=== PATIENT | female | born 1960 | race Caucasian/White ===

== ENCOUNTER 2020-10-25 19:46 | Emergency (ER) | payer OTHER ==
[2020-10-25 19:58] VITALS: RESP 16; TEMP 98.4
[2020-10-25] MEDS ORDERED: ONDANSETRON 4 MG/2 ML VIAL IVP STA (20:20)
[2020-10-25] MEDS ORDERED: MORPHINE SULFATE 2 MG/ML SYRINGE IVP STA (20:20)
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
[2020-10-25] MEDS ORDERED: ACET/COD 300 MG/30 MG STARTER PACK 6 TAB BTL PO STA (21:20)
[2020-10-25 21:37] VITALS: BP 126/71; PULSE 98
== END 2020-10-25 21:37 | disposition home or self-care (01) ==
LOC: EC 19:46
DX: S16.1XXA Strain of muscle, fascia and tendon at neck level, initial encounter (principal); S05.11XA Contusion of eyeball and orbital tissues, right eye, initial encounter; R00.0 Tachycardia, unspecified; Z87.891 Personal history of nicotine dependence; I25.2 Old myocardial infarction; Z85.048 Personal history of other malignant neoplasm of rectum, rectosigmoid junction, and anus; V43.52XA Car driver injured in collision with other type car in traffic accident, initial encounter; Y93.89 Activity, other specified; Y92.410 Unspecified street and highway as the place of occurrence of the external cause
CPT/HCPCS: 72125; 70486; 70450; 99284; 96374; 96375; J2405; J2270

== ENCOUNTER → 2020-10-31 | Outpatient (CLI) | payer OTHER ==
[2020-10-31 10:21] LABS: Basophils # (A) 0.1 k/uL (0-0.2); Basophils % (A) 1 %; Eosinophils # (A) 0.2 k/uL (0-0.7); Eosinophils % (A) 4 %; HCT 41.7 % (34.0-46.0); HGB 13.8 gm/dL (11.4-16.0); Lymphocytes # (A) 1.4 k/uL (1.0-4.8); Lymphocytes % (A) 23 %; MCH 30.1 pg (25.0-35.0); MCV 91.1 fL (80.0-100.0); Mean Platelet Volume 7.2; Monocytes # (A) 0.4 k/uL (0-1.0); Monocytes % (A) 6 %; Neutrophils # (A) 3.9 k/uL (1.3-7.7); Neutrophils % (A) 65 %; Platelet Count 185 k/uL (150-450); RBC 4.57 m/uL (3.80-5.40); RDW 13.3 % (11.5-15.5); WBC 6.1 k/uL (3.8-10.6)
--- NOTE | 2020-10-31 10:32 | XR ---
EXAMINATION TYPE: XR thoracic spine complete DATE OF EXAM: 10/31/2020 CLINICAL HISTORY: pain TECHNIQUE: Frontal, lateral, and swimmer's view of thoracic spine are obtained. COMPARISON: None. FINDINGS: Thoracic spine show satisfactory alignment without evidence of acute fracture or dislocatio n. Vertebral body heights are preserved. Multilevel degenerative disc disease and spondylosis mild d egree. Visualized ribs are unremarkable. IMPRESSION: No acute fracture or dislocation is seen in the thoracic spine. ICD 10 NO FRACTURE, INIT IAL EVALUATION
--- NOTE | 2020-10-31 10:34 | XR ---
EXAMINATION TYPE: XR lumbar spine 2 or 3V DATE OF EXAM: 10/31/2020 CLINICAL HISTORY: pain TECHNIQUE: Three views of the lumbar spine are submitted. COMPARISON: None. FINDINGS: There are 5 lumbar type vertebral bodies identified. The lumbar spine shows satisfactory alignment w ithout evidence of acute fracture or dislocation. There is no acute hemorrhage to the left. Mild mult ilevel degenerative disc space narrowing and spondylosis noted. Vertebral body heights are within nor mal limits. IMPRESSION: No acute fracture or dislocation is seen in the lumbar spine. ICD 10 NO FRACTURE, INITIAL EVALUATION
[2020-10-31 15:14] LABS: African American GFR (CKD) 93.5 (60.0-200.0); Albumin 4.4 g/dL (3.80-4.90); Albumin/Globulin Ratio 1.83 (1.60-3.17); Anion Gap 4.8 mmol/L (4.00-12.00); BUN/Creat Ratio 26.25 Ratio (12.00-20.00); Calcium 9.3 mg/dL (8.7-10.3); Carbon Dioxide 29.2 mmol/L (21.6-31.8); Chol/HDL Ratio 3.79; Globulin 2.4 g/dL (1.6-3.3); LDL Cholesterol,Calculated 125.2 mg/dL (0.0-131.0); Non-African American GFR(CKD) 80.7 (60.0-200.0); Potassium 4.4 mmol/L (3.5-5.5); Total Bilirubin 0.5 mg/dL (0.3-1.2); Total Protein 6.8 g/dL (6.2-8.2); VLDL Calculation 19.8 mg/dL (5.00-40.00)
== END | disposition home or self-care (01) ==
LOC: LABWHC1 09:12
PROVIDERS: ATTEND Family Medicine
DX: M54.5 Low back pain (principal); M54.6 Pain in thoracic spine; Z00.00 Encounter for general adult medical examination without abnormal findings
CPT/HCPCS: 36415; 72072; 72100; 80053; 80061; 85025

== ENCOUNTER 2020-11-08 13:21 | Emergency (ER) | payer OTHER ==
[2020-11-08 13:43] VITALS: BP 147/86; PULSE 98; RESP 16; TEMP 98.7
[2020-11-08] MEDS ORDERED: ACET/COD 300 MG/30 MG STARTER PACK 6 TAB BTL PO STA (13:50)
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
== END 2020-11-08 13:55 | disposition home or self-care (01) ==
LOC: EC 13:21
DX: K04.7 Periapical abscess without sinus (principal); S02.5XXD Fracture of tooth (traumatic), subsequent encounter for fracture with routine healing; I25.2 Old myocardial infarction; Z85.048 Personal history of other malignant neoplasm of rectum, rectosigmoid junction, and anus; Z87.891 Personal history of nicotine dependence; X58.XXXD Exposure to other specified factors, subsequent encounter
CPT/HCPCS: 99283

== ENCOUNTER → 2020-12-18 | Outpatient (CLI) | payer OTHER ==
--- NOTE | 2020-12-18 14:45 | ECHOS ---
STRESS ECHOCARDIOGRAM LUMASON: N/A Vial INDICATIONS: Myocardial infarction, history rectal cancer. MEDICATIONS: BASELINE HEART RATE: 91 BASELINE BLOOD PRESSURE: 113/52 MAXIMUM HEART RATE: 158 MAXIMUM BLOOD PRESSURE: 154/76 85% MPHR: 137 100% MPHR: 161 METS: 7.1 MAXIMUM STAGE REACHED: 2 TOTAL EXERCISE TIME: 5 minutes 45 seconds CLINICAL INFORMATION: Baseline rhythm is a sinus mechanism, rate of 91, normal axis and intervals, normal electrocardiogram. Baseline blood pressure was 113/52 mmHg. Patient exercised on Marcos protocol for 5 minutes 45 seconds reaching peak rate 158 beats per minute which is equal to 98% maximum predicted heart rate. Peak blood pressure 154/76 mmHg. Test was terminated secondary to fatigue. There were no chest pain. Electrocardiograph monitoring revealed no evidence of diagnostic ischemic ST deviation. Baseline echocardiogram revealed normal wall motion. At peak exercise, there was normal wall motion augmentation with no hypokinesis or dyskinesis. CONCLUSION: 1. Decreased exercise tolerance with normal electrocardiograph response to exercise. 2. Normal stress echocardiogram with no evidence of stress-induced ischemia. MMODL / IJN: [id number] /
== END | disposition home or self-care (01) ==
LOC: RADNMMAIN 09:06
PROVIDERS: ATTEND Family Medicine
DX: I21.9 Acute myocardial infarction, unspecified (principal); Z85.048 Personal history of other malignant neoplasm of rectum, rectosigmoid junction, and anus
CPT/HCPCS: 93351

== ENCOUNTER 2021-03-12 09:00 | Day surgery (SDC) | payer OTHER ==
[2021-03-07 16:10] VITALS: BMI 23.5
[~2021-03-12 09:00] MED LIST: LACTATED RINGERS 1,000 ML IV SCH
[2021-03-12] MEDS ORDERED: LACTATED RINGERS 1,000 ML IV ONE ×2 (09:15)
[2021-03-12] MEDS ORDERED: LIDOCAINE 1% (10MG/ML) FOR IV START INTRADERMA ONE (09:22)
[2021-03-12 09:35] VITALS: TEMP 97.8
[2021-03-12] MEDS ORDERED: PROPOFOL 10 MG/ML 20 ML VIAL IV ONE (09:36)
--- NOTE | 2021-03-12 09:40 | P.GSHP ---
History of Present Illness H&P Date: 03/12/21 Chief Complaint: Screening, history of anorectal cancer 60-year-old female here today for colonoscopy. Last colonoscopy 6 years ago. 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 No surgery was necessary at that time. Patient doing well currently. Does have some burning irritation at times in the anal region Past Medical History Past Medical History: Cancer, Hyperlipidemia, Myocardial Infarction ([place]) Additional Past Medical History / Comment(s): rectal cancer, 3 past [place] Last Myocardial Infarction Date:: LAST [place] 2016 History of Any Multi-Drug Resistant Organisms: None Reported Past Surgical History: Section Additional Past Surgical History / Comment(s): COLONOSCOPY Past Anesthesia/Blood Transfusion Reactions: Motion Sickness Past Psychological History: No Psychological Hx Reported - Past Family History Sister(s) Family Medical History: Cancer Medications and Allergies Home Medications Medication Instructions Recorded Confirmed Type Aspirin [Adult Low Dose Aspirin EC] 81 mg PO DAILY 03/07/21 03/07/21 History Atorvastatin [Lipitor] 40 mg PO HS 03/07/21 03/07/21 History Escitalopram [Lexapro] 5 mg PO HS 03/07/21 03/07/21 History Allergies Allergy/AdvReac Type Severity Reaction Status Date / Time No Known Allergies Allergy Verified 03/07/21 15:40 Surgical - Exam Vital Signs Temp Pulse Resp BP Pulse Ox 97.8 F 78 18 141/70 98 03/12/21 09:14 03/12/21 09:14 03/12/21 09:14 03/12/21 09:14 03/12/21 09:14 Physical exam: General: Well-developed, well-nourished HEENT: Normocephalic, sclerae nonicteric Abdomen: Nontender, nondistended Extremities: No edema Neuro: Alert and oriented Assessment and Plan (1) Personal hx-rectal/anal malignancy Narrative/Plan: Will proceed with colonoscopy Current Visit: Yes Status: Acute Code(s): Z85.048 - PRSNL HX OF MALIG NEOPLM OF RECTUM, RECTOSIG JUNCT, AND ANUS SNOMED Code(s): 658896006
--- NOTE | 2021-03-12 09:56 | P.PCN ---
Date of Procedure: 03/12/21 Procedure(s) Performed: PREOPERATIVE DIAGNOSIS: History of anorectal cancer POSTOPERATIVE DIAGNOSIS: Post radiation changes to the anal rectal region otherwise normal PROCEDURE: Colonoscopy ANESTHESIA: MAC SURGEON: Theodore Gonzalez M.D. SPECIMENS: None ENDOSCOPIC PROCEDURE: The patient was placed on the endoscopy table in the left decubitus position. The Olympus colonoscope was inserted into the anus and passed under direct visualization to the base of the cecum. The appendiceal orifice was visualized. From that point the scope was slowly withdrawn inspecting all surfaces carefully. There were no neoplastic inflammatory or polypoid lesions throughout the cecum, ascending, transverse, descending, and sigmoid colon. In the rectum distally there were mild inflammatory changes circumferentially consistent with prior radiation treatment. These radiation changes extended to the anal region and also to the skin around the anus and perineum. Nothing appeared suspicious for recurrence at this time. There was no bleeding. There were no ulcers or friability. No biopsies were performed. The patient had no visible diverticulosis. The patient was taken to the recovery room in stable condition per anesthesia guidelines. RECOMMENDATIONS: Resume diet. Follow-up colonoscopy 3-5 years.
[2021-03-12 10:24] VITALS: BP 114/63; PULSE 72; RESP 20
== END 2021-03-12 10:42 | disposition home or self-care (01) ==
LOC: ORWHC2ENDO 09:00
PROVIDERS: ATTEND Surgery
DX: Z12.11 Encounter for screening for malignant neoplasm of colon (principal); Z85.048 Personal history of other malignant neoplasm of rectum, rectosigmoid junction, and anus; Z92.3 Personal history of irradiation; E78.5 Hyperlipidemia, unspecified; I25.2 Old myocardial infarction; Z98.891 History of uterine scar from previous surgery; Z98.890 Other specified postprocedural states; Z80.9 Family history of malignant neoplasm, unspecified; Z79.82 Long term (current) use of aspirin; Z79.899 Other long term (current) drug therapy
CPT/HCPCS: J2704; G0105; 45378

== ENCOUNTER → 2023-03-03 | Outpatient (CLI) | payer OTHER ==
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
== END | disposition home or self-care (01) ==
LOC: RADMRIMAIN 12:57
PROVIDERS: ATTEND Nurse Practitioner Family
DX: S32.010A Wedge compression fracture of first lumbar vertebra, initial encounter for closed fracture (principal); M43.16 Spondylolisthesis, lumbar region; M51.16 Intervertebral disc disorders with radiculopathy, lumbar region; M48.061 Spinal stenosis, lumbar region without neurogenic claudication
CPT/HCPCS: 72148

== ENCOUNTER 2023-03-21 10:16 | Emergency (ER) | payer OTHER ==
[2023-03-21 10:22] VITALS: RESP 18
[2023-03-21] MEDS ORDERED: KETOROLAC 15 MG/ML 1 ML VIAL IM STA (10:35)
--- NOTE | 2023-03-21 10:38 | ED ---
General Adult HPI - General Chief complaint: Extremity Injury, Lower Stated complaint: Lt leg injury Time Seen by Provider: 03/21/23 10:23 Source: patient, RN notes reviewed Mode of arrival: wheelchair Limitations: physical limitation - History of Present Illness Initial comments: Patient is a pleasant 62-year-old female presenting to the emergency department with left lower leg injury. Injury occurred the night before last. A serra was racing harness on a horse who did wear off when it was spooked and then came down with a front of onto the left lower leg and foot region. Patient has had pain and swelling since that time. No significant improvement. Patient is ambulating 10-20 feet before she has to stop from discomfort. No history of chronic pain in this area previously. No head injury or loss of consciousness. No other area of trauma or concern - Related Data Home Medications Medication Instructions Recorded Confirmed Aspirin [Adult Low Dose Aspirin EC] 81 mg PO DAILY 03/07/21 03/07/21 Atorvastatin [Lipitor] 40 mg PO HS 03/07/21 03/07/21 Escitalopram [Lexapro] 5 mg PO HS 03/07/21 03/07/21 Allergies Allergy/AdvReac Type Severity Reaction Status Date / Time No Known Allergies Allergy Verified 03/21/23 10:22 Review of Systems ROS Statement: Those systems with pertinent positive or pertinent negative responses have been documented in the HPI. ROS Other: All systems not noted in ROS Statement are negative. Constitutional: Denies: fever Eyes: Denies: eye pain ENT: Denies: ear pain Respiratory: Denies: cough, dyspnea Cardiovascular: Denies: chest pain Endocrine: Denies: fatigue Gastrointestinal: Denies: abdominal pain Genitourinary: Denies: dysuria Musculoskeletal: Denies: back pain Neurological: Denies: headache, weakness Past Medical History Past Medical History: Cancer, Hyperlipidemia, Myocardial Infarction (MD) Additional Past Medical History / Comment(s): rectal cancer, 3 past MD Last Myocardial Infarction Date:: LAST 2016 History of Any Multi-Drug Resistant Organisms: None Reported Past Surgical History: Section Additional Past Surgical History / Comment(s): COLONOSCOPY Past Anesthesia/Blood Transfusion Reactions: Motion Sickness Past Psychological History: No Psychological Hx Reported Smoking Status: Former smoker Past Alcohol Use History: None Reported Past Drug Use History: None Reported - Past Family History Sister(s) Family Medical History: Cancer General Exam Limitations: no limitations General appearance: alert, in no apparent distress Head exam: Present: atraumatic Eye exam: Present: normal appearance Neck exam: Present: normal inspection. Absent: tenderness Respiratory exam: Present: normal lung sounds bilaterally Cardiovascular Exam: Present: regular rate, normal rhythm Expanded Peripheral pulses: 2+: Posterior Tibialis (L), Dorsalis Pedis (L) GI/Abdominal exam: Present: soft. Absent: tenderness Extremities exam: Present: other (Patient has tenderness in the lower anterior mid and lateral tib-fib region, moderate to severe. Patient also has mild tenderness left ankle and dorsal proximal/mid foot. There is mild swelling throughout. Minimal ecchymosis.). Absent: calf tenderness Neurological exam: Present: alert. Absent: motor sensory deficit Psychiatric exam: Present: normal affect, normal mood Skin exam: Present: other (Ecchymosis) Course Vital Signs 03/21/23 10:20 Temperature 97.3 F L Pulse Rate 104 H Respiratory 18 Rate Blood Pressure 109/68 O2 Sat by Pulse 97 Oximetry Medical Decision Making - Medical Decision Making Was pt. sent in by a medical professional or institution (, PA, SOUND EFFECTS MANAGER, urgent care, hospital, or residential...) When possible be specific @ -No Did you speak to anyone other than the patient for history (EMS, parent, family, police, friend...)? What history was obtained from this source @ -No Did you review nursing and triage notes (agree or disagree)? Why? @ -I reviewed and agree with nursing and triage notes Were old charts reviewed (outside hosp., previous admission, EMS record, old EKG, old radiological studies, urgent care reports/EKG's, residential records)? Report findings @ -No old charts were reviewed Differential Diagnosis (chest pain, altered mental status, abdominal pain women, abdominal pain men, vaginal bleeding, weakness, fever, dyspnea, syncope, headache, dizziness, GI bleed, back pain, seizure, CVA, palpatations, mental h ealth)? @ -not applicable EKG interpreted by me (3pts min.). @ -As above X-rays interpreted by me (1pt min.). @ -X-ray left tib-fib, left ankle, left foot did not reveal acute osseous abnormality CT interpreted by me (1pt min.). @ -None done U/S interpreted by me (1pt. min.). @ -None done What testing was considered but not performed or refused? (CT, X-rays, U/S, labs)? Why? @ -None What meds were considered but not given or refused? Why? @ -None Did you discuss the management of the patient with other professionals (professionals i.e. , PA, SOUND EFFECTS MANAGER, lab, RT, psych nurse, social work manager, woven wood shade assembler, teacher, small business banking officer, lining caser)? Give summary @ -No Was smoking cessation discussed for >3mins.? @ -No Was critical care preformed (if so, how long)? @ -No Were there social determinants of health that impacted care today? How? (Homelessness, low income, unemployed, alcoholism, drug addiction, transportation, low edu. Level, literacy, decrease access to med. care, detention, rehab)? @ -No Was there de-escalation of care discussed even if they declined (Discuss DNR or withdrawal of care, Hospice)? DNR status @ -No What co-morbidities impacted this encounter? (DM, HTN, Smoking, COPD, CAD, Cancer, CVA, ARF, Chemo, Hep., AIDS, mental health diagnosis, sleep apnea, morbid obesity)? @ -None Was patient admitted / discharged? Hospital course, mention meds given and route, prescriptions, significant lab abnormalities, going to OR and other pertinent info. @ -Patient refuses further pain medication prescription. Patient is updated on results and need for follow-up. Patient is receptive to ankle splint and this has been provided by nursing staff. Patient advised [id number] Tylenol and Motrin and ice as needed Undiagnosed new problem with uncertain prognosis? @ -No Drug Therapy requiring intensive monitoring for toxicity (Heparin, Nitro, Insulin, Cardizem)? @ -No Were any procedures done? @ -No Diagnosis/symptom? @ -Left leg contusion Acute, or Chronic, or Acute on Chronic? @ -Acute Uncomplicated (without systemic symptoms) or Complicated (systemic symptoms)? @ -default Side effects of treatment? @ -No Exacerbation, Progression, or Severe Exacerbation? @ -No Poses a threat to life or bodily function? How? (Chest pain, USA, MD, pneumonia, PE, COPD, DKA, ARF, appy, cholecystitis, CVA, Diverticulitis, Homicidal, Suicidal, threat to staff... and all critical care pts) @ -No Disposition Clinical Impression: Contusion of left lower leg Disposition: HOME SELF-CARE Condition: Stable Instructions (If sedation given, give patient instructions): Foot Contusion (ED) Additional Instructions: Use ankle splint. Ice to affected area. [id number] Tylenol and Motrin as needed. Return for increased pain, swelling, color change, worsening symptoms or other concerns. Please do follow-up to primary care physician in the next couple of days for recheck. Is patient prescribed a controlled substance at d/c from ED?: No Referrals: Ap Kirk MD [Primary Care Provider] - 1-2 days Time of Disposition: 11:44
--- NOTE | 2023-03-21 10:57 | XR ---
EXAMINATION TYPE: XR tibia fibula LT DATE OF EXAM: 03/21/2023 COMPARISON: None HISTORY: Trauma, pain TECHNIQUE: 2 view left tibia and fibula FINDINGS: No acute fracture or dislocation is evident. Joint spaces appear normal. Soft tissues are u nremarkable. Follow up exams can be performed 7-10 days from acute trauma for continued pain. IMPRESSION: 1. No acute osseous abnormality left tibia and fibula
--- NOTE | 2023-03-21 10:58 | XR ---
EXAMINATION TYPE: XR ankle complete LT DATE OF EXAM: 03/21/2023 COMPARISON: None HISTORY: Pain, trauma TECHNIQUE: 3 view left ankle FINDINGS: Ankle mortise is intact. Soft tissues appear normal. No acute fracture or dislocation is ev ident. Follow up exams can be performed 7-10 days from acute trauma for continued pain. IMPRESSION: 1. No acute osseous abnormality left ankle.
--- NOTE | 2023-03-21 10:59 | XR ---
EXAMINATION TYPE: XR foot complete LT DATE OF EXAM: 03/21/2023 COMPARISON: None HISTORY: Trauma, pain TECHNIQUE: 3 view left foot FINDINGS: No acute fracture or dislocation is evident. Soft tissues appear unremarkable. Alignment ap pears preserved. Follow up exams can be performed 7-10 days from acute trauma for continued pain. IMPRESSION: 1. No acute osseous abnormality left foot
[2023-03-21 12:15] VITALS: BP 126/78; PULSE 77; TEMP 98.3
== END 2023-03-21 12:15 | disposition home or self-care (01) ==
LOC: EC 10:16
DX: S80.12XA Contusion of left lower leg, initial encounter (principal); E78.5 Hyperlipidemia, unspecified; I25.2 Old myocardial infarction; Z79.82 Long term (current) use of aspirin; Z79.899 Other long term (current) drug therapy; Z87.891 Personal history of nicotine dependence; X58.XXXA Exposure to other specified factors, initial encounter
CPT/HCPCS: 73590; 73610; 73630; 99283; 96372; 29515; L4350; J1885

== ENCOUNTER → 2023-04-27 | Outpatient (CLI) | payer OTHER ==
--- NOTE | 2023-04-27 13:48 | MR ---
EXAMINATION TYPE: MR cspine/tspine wo con DATE OF EXAM: 04/27/2023 1:22 PM CLINICAL INDICATION:Female, 63 years old with history of R29.6 REPEATED FALLS; Neck/back pain, freque nt falls COMPARISON: MRI lumbar spine 03/03/2023, radiographs: L spine 04/01/2023. Thoracic spine 10/31/2020 TECHNIQUE: Multi planar, multi sequence imaging was performed utilizing: T1-weighted, T2-weighted, a nd turbo inversion recovery imaging of the cervical and thoracic spine. MR contrast: IV Contrast: None. FINDINGS: CERVICAL: Alignment: The cervical vertebral bodies have preserved heights. Alignment is within normal limits gi miroslava patient positioning. Bones: Bone signal is within normal limits. No abnormal bony edema on inversion recovery sequences. Cord: The spinal cord is unremarkable with regards to their signal intensity and morphology. Discs: Multilevel disc desiccation is present. C2-C3: No significant disc pathology. The spinal canal is patent. No neural foraminal stenosis. C3-C4: No significant disc pathology. The spinal canal is patent. Bilateral facet and uncovertebral joint arthropathy are present with mild bilateral neural foraminal stenosis. C4-C5: A disc osteophyte complex is present which minimally impresses upon the anterior spinal cord. Cord signal is maintained.. Bilateral facet and uncovertebral joint arthropathy are present with mi ld bilateral neural foraminal stenosis. C5-C6: No significant disc pathology. The spinal canal is patent. No neural foraminal stenosis. C6-C7: No significant disc pathology. The spinal canal is patent. No neural foraminal stenosis. C7-T1: No significant disc pathology. The spinal canal is patent. No neural foraminal stenosis. THORACIC: No abnormal inversion recovery signal within the thoracic spine. Multilevel disc desiccatio n is present. Osteophyte formation and disc space narrowing is seen throughout the spine. L1 vertebra l body anterior/superior limbic vertebrae versus compression deformity which appears chronic this is stable from prior MRI in 03/03/2023. Mild scoliosis changes of the thoracic spine No evidence of signi ficant spinal canal neural foraminal stenosis. Other: Right hepatic lobe 15 x 14 mm lesion which is indeterminate an predominantly high T2 signal... IMPRESSION: 1. Multilevel disc degeneration with associated osteoarthritic changes worse at C4-C5 with disc oste ophyte complex which minimally impresses upon the anterior right spinal cord. Cord signal is maintain ed. 2. No additional evidence of disc herniation or significant spinal canal or neural foraminal stenosi s throughout the cervical or thoracic spine.
== END | disposition home or self-care (01) ==
LOC: RADMRIMAIN 12:03
PROVIDERS: ATTEND Orthopaedic Surgery
DX: M50.321 Other cervical disc degeneration at C4-C5 level (principal); M47.812 Spondylosis without myelopathy or radiculopathy, cervical region; M51.34 Other intervertebral disc degeneration, thoracic region; R29.6 Repeated falls
CPT/HCPCS: 72141; 72146

== ENCOUNTER 2023-05-27 09:53 | Emergency (ER) | payer OTHER ==
[2023-05-27] MEDS ORDERED: SODIUM CHLORIDE 0.9% 1,000 ML IV STA (10:20)
--- NOTE | 2023-05-27 10:24 | ED ---
General Adult HPI - General Chief complaint: Extremity Injury, Lower Stated complaint: L Foot Injury, Rooster attack/srinivasan yesterday Time Seen by Provider: 05/27/23 10:10 Source: patient Mode of arrival: wheelchair Limitations: no limitations - History of Present Illness Initial comments: Old female presenting to the ED with a chief complaint of left foot injury. Patient states that her rooster packed her left foot yesterday. Since then, notes that she has been developing pain of the left foot and notes today that she has been unable to ambulate due to the pain. Denies fever. Unknown tetanus status. No other complaints. - Related Data Home Medications Medication Instructions Recorded Confirmed Aspirin [Adult Low Dose Aspirin EC] 81 mg PO DAILY 03/07/21 03/07/21 Atorvastatin [Lipitor] 40 mg PO HS 03/07/21 03/07/21 Escitalopram [Lexapro] 5 mg PO HS 03/07/21 03/07/21 Previous Rx's Medication Instructions Recorded Clindamycin [Cleocin] 450 mg PO TID 7 Days #63 capsule 05/27/23 Allergies Allergy/AdvReac Type Severity Reaction Status Date / Time No Known Allergies Allergy Verified 03/21/23 10:22 Review of Systems ROS Statement: Those systems with pertinent positive or pertinent negative responses have been documented in the HPI. ROS Other: All systems not noted in ROS Statement are negative. Past Medical History Past Medical History: Cancer, Hyperlipidemia, Myocardial Infarction (DC) Additional Past Medical History / Comment(s): rectal cancer, 3 past DC Last Myocardial Infarction Date:: LAST 2016 History of Any Multi-Drug Resistant Organisms: None Reported Past Surgical History: Section Additional Past Surgical History / Comment(s): COLONOSCOPY Past Anesthesia/Blood Transfusion Reactions: Motion Sickness Past Psychological History: No Psychological Hx Reported Smoking Status: Former smoker Past Alcohol Use History: None Reported Past Drug Use History: None Reported - Past Family History Sister(s) Family Medical History: Cancer General Exam Limitations: no limitations General appearance: alert Eye exam: Present: normal appearance Respiratory exam: Present: normal lung sounds bilaterally Cardiovascular Exam: Present: regular rate, normal rhythm GI/Abdominal exam: Present: soft Extremities exam: Present: other (Full strength and sensation at the left foot. DP/PT pulses intact. Punctate lesion on the dorsum of the foot with no active drainage with approximately half a centimeter of surrounding erythema. Foot edematous, warm. Pain out of proportion to light touch.) Neurological exam: Present: alert, oriented X3 Skin exam: Present: warm, dry Course Vital Signs 05/27/23 09:54 Temperature 99.1 F Pulse Rate 103 H Respiratory 20 Rate Blood Pressure 115/64 O2 Sat by Pulse 98 Oximetry Medical Decision Making - Medical Decision Making Was pt. sent in by a medical professional or institution (, LACHO, IMPROVEMENT LEAD, urgent care, hospital, or fdc...) When possible be specific @ -No Did you speak to anyone other than the patient for history (EMS, parent, family, police, friend...)? What history was obtained from this source @ -No Did you review nursing and triage notes (agree or disagree)? Why? @ -I reviewed and agree with nursing and triage notes Were old charts reviewed (outside hosp., previous admission, EMS record, old EKG, old radiological studies, urgent care reports/EKG's, fdc records)? Report findings @ -Old charts reviewed showing history of hyperlipidemia, no history of diabetes. Differential Diagnosis (chest pain, altered mental status, abdominal pain women, abdominal pain men, vaginal bleeding, weakness, fever, dyspnea, syncope, headache, dizziness, GI bleed, back pain, seizure, CVA, palpatations, mental health, musculoskeletal)? @ -Cellulitis, MRSA, osteomyelitis, necrotizing fasciitis. This is not meant to be an all-inclusive list. EKG interpreted by me (3pts min.). @ -None X-rays interpreted by me (1pt min.). @ -X-ray showed no acute finding. CT interpreted by me (1pt min.). @ -None done U/S interpreted by me (1pt. min.). @ -None done What testing was considered but not performed or refused? (CT, X-rays, U/S, labs)? Why? @ -None What meds were considered but not given or refused? Why? @ -None Did you discuss the management of the patient with other professionals (professionals i.e. LACHO Bruce, IMPROVEMENT LEAD, lab, RT, psych nurse, medical social worker, house cleaner, teacher, student liaison officer, outpatient case manager)? Give summary @ -No Was smoking cessation discussed for >3mins.? @ -No Was critical care preformed (if so, how long)? @ -No Were there social determinants of health that impacted care today? How? (Homelessness, low income, unemployed, alcoholism, drug addiction, transportation, low edu. Level, literacy, decrease access to med. care, intermediate, rehab)? @ -No Was there de-escalation of care discussed even if they declined (Discuss DNR or withdrawal of care, Hospice)? DNR status @ -No What co-morbidities impacted this encounter? (DM, HTN, Smoking, COPD, CAD, Cancer, CVA, ARF, Chemo, Hep., AIDS, mental health diagnosis, sleep apnea, morbid obesity)? @ -None Was patient admitted / discharged? Hospital course, mention meds given and route, prescriptions, significant lab abnormalities, going to OR and other pertinent info. @ -Discharge. Patient does have an elevated white count at 12.5 with a CRP of 4.1. At this time no evidence of necrotizing fasciitis. X-ray showed no acute findings. Erythema was marked with a surgical marker. Provided clindamycin IV here in the ED. Tetanus updated Discharged home with prescription for clindamycin. Discussed strict return precautions with patient who verbalizes a greement. Undiagnosed new problem with uncertain prognosis? @ -No Drug Therapy requiring intensive monitoring for toxicity (Heparin, Nitro, Insu moni, Cardizem)? @ -No Were any procedures done? @ -No Diagnosis/symptom? @ -Cellulitis Acute, or Chronic, or Acute on Chronic? @ -Acute Uncomplicated (without systemic symptoms) or Complicated (systemic symptoms)? @ -Complicated, tachycardia. Side effects of treatment? @ -No Exacerbation, Progression, or Severe Exacerbation? @ -No Poses a threat to life or bodily function? How? (Chest pain, USA, DC, pneumonia, PE, COPD, DKA, ARF, appy, cholecystitis, CVA, Diverticulitis, Homicidal, Suicidal, threat to staff... and all critical care pts) @ -No - Lab Data Result diagrams: 05/27/23 10:35 05/27/23 10:35 Lab Results 05/27/23 05/27/23 Range/Units 10:35 10:35 WBC 12.5 H (3.8-10.6) k/uL RBC 4.24 (3.80-5.40) m/uL Hgb 12.2 (11.4-16.0) gm/dL Hct 38.7 (34.0-46.0) % MCV 91.2 (80.0-100.0) fL MCH 28.9 (25.0-35.0) pg MCHC 31.7 (31.0-37.0) g/dL RDW 12.8 (11.5-15.5) % Plt Count 187 (150-450) k/uL MPV 7.7 Neutrophils % 81 % Lymphocytes % 10 % Monocytes % 7 % Eosinophils % 1 % Basophils % 0 % Neutrophils # 10.1 H (1.3-7.7) k/uL Lymphocytes # 1.3 (1.0-4.8) k/uL Monocytes # 0.9 (0-1.0) k/uL Eosinophils # 0.1 (0-0.7) k/uL Basophils # 0.0 (0-0.2) k/uL Sodium 138 (137-145) mmol/L Potassium 3.7 (3.5-5.1) mmol/L Chloride 107 (98-107) mmol/L Carbon Dioxide 23 (22-30) mmol/L Anion Gap 8 mmol/L BUN 13 (7-17) mg/dL Creatinine 0.59 (0.52-1.04) mg/dL Est GFR (CKD-EPI)AfAm >90 (>60 ml/min/1.73 sqM) Est GFR (CKD-EPI)NonAf >90 (>60 ml/min/1.73 sqM) Glucose 139 H (74-99) mg/dL Calcium 9.2 (8.4-10.2) mg/dL Total Bilirubin 0.9 (0.2-1.3) mg/dL AST 19 (14-36) U/L ALT 18 (4-34) U/L Alkaline Phosphatase 86 (38-126) U/L C-Reactive Protein 4.1 H (<1.0) mg/dL Total Protein 7.2 (6.3-8.2) g/dL Albumin 3.9 (3.5-5.0) g/dL Disposition Clinical Impression: Cellulitis, Animal bite of dorsum of foot Disposition: HOME SELF-CARE Condition: Good Instructions (If sedation given, give patient instructions): Cellulitis (ED) Additional Instructions: Please return to the Emergency Department if symptoms worsen or any other concerns. Monitor for spreading redness past the marked edges. Prescriptions: Clindamycin [Cleocin] 450 mg PO TID 7 Days #63 capsule Is patient prescribed a controlled substance at d/c from ED?: No Referrals: Broderick Cardenas MD [Primary Care Provider] - 1-2 days Time of Disposition: 11:20
[2023-05-27] MEDS ORDERED: DIPH,PERTUS(ACELL)TETVAC-LF 0.5 ML VIAL IM ONE (10:25)
[2023-05-27 10:43] LABS: Basophils % (A) 0 %; Eosinophils # (A) 0.1 k/uL (0-0.7); Eosinophils % (A) 1 %; HCT 38.7 % (34.0-46.0); HGB 12.2 gm/dL (11.4-16.0); Lymphocytes # (A) 1.3 k/uL (1.0-4.8); Lymphocytes % (A) 10 %; MCH 28.9 pg (25.0-35.0); MCHC 31.7 g/dL (31.0-37.0); MCV 91.2 fL (80.0-100.0); Mean Platelet Volume 7.7; Monocytes # (A) 0.9 k/uL (0-1.0); Monocytes % (A) 7 %; Neutrophils # (A) 10.1 k/uL (1.3-7.7); Neutrophils % (A) 81 %; Platelet Count 187 k/uL (150-450); RBC 4.24 m/uL (3.80-5.40); RDW 12.8 % (11.5-15.5); WBC 12.5 k/uL (3.8-10.6)
--- NOTE | 2023-05-27 10:53 | XR ---
EXAMINATION TYPE: XR foot complete LT DATE OF EXAM: 05/27/2023 COMPARISON: 03/21/2023 HISTORY: Pain and puncture wounds from [place] at TECHNIQUE: 3 view left foot FINDINGS: No acute fracture or dislocation is evident. Soft tissues appear normal. No radiopaque fore ign bodies are evident. Joint spaces are preserved. Follow up exams can be performed as clinically in dicated. IMPRESSION: 1. No acute abnormalities left foot
[2023-05-27 11:24] LABS: ALT 18 U/L (4-34); AST 19 U/L (14-36); African American GFR (CKD) >90 (>60 ml/min/1.73 sqM); Albumin 3.9 g/dL (3.5-5.0); Alkaline Phosphatase 86 U/L (38-126); Anion Gap 8 mmol/L; Blood Urea Nitrogen 13 mg/dL (7-17); C Reactive Protein 4.1 mg/dL (<1.0); Calcium 9.2 mg/dL (8.4-10.2); Carbon Dioxide 23 mmol/L (22-30); Chloride 107 mmol/L (98-107); Glucose 139 mg/dL (74-99); Non-African American GFR(CKD) >90 (>60 ml/min/1.73 sqM); Potassium 3.7 mmol/L (3.5-5.1); Sodium 138 mmol/L (137-145); Total Bilirubin 0.9 mg/dL (0.2-1.3); Total Protein 7.2 g/dL (6.3-8.2)
[2023-05-27] MEDS ORDERED: CLINDAMYCIN 600 MG in DEXTROSE 5% IN WATER 50 ML IVPB STA ×2 (11:36)
[2023-05-27] MEDS ORDERED: KETOROLAC 15 MG/ML 1 ML VIAL IVP STA (11:37)
[2023-05-27 13:09] VITALS: BP 99/54; PULSE 68; RESP 16; TEMP 98.6
== END 2023-05-27 13:08 | disposition home or self-care (01) ==
LOC: EC 09:53
DX: S91.352A Open bite, left foot, initial encounter (principal); L03.116 Cellulitis of left lower limb; E78.5 Hyperlipidemia, unspecified; I25.2 Old myocardial infarction; Z87.891 Personal history of nicotine dependence; Z79.82 Long term (current) use of aspirin; Z79.899 Other long term (current) drug therapy; Z23 Encounter for immunization; W61.33XA Pecked by chicken, initial encounter
CPT/HCPCS: 36415; 80053; 85025; 86140; 73630; 90715; 99284; 96365; 96375; 96361; 90471; J1885

== ENCOUNTER 2023-07-24 05:26 | Observation (INO) | payer OTHER ==
[2023-07-24 05:33] VITALS: TEMP 97.5
[2023-07-24] MEDS ORDERED: KETOROLAC 15 MG/ML 1 ML VIAL IVP STA (05:52)
--- NOTE | 2023-07-24 06:08 | ED ---
General Adult HPI - General Source: patient Mode of arrival: wheelchair <Abrahan Maldonado - Last Filed: 07/24/23 06:35> <Matt Yepez - Last Filed: 07/24/23 08:27> - General Chief complaint: Chest Pain Stated complaint: Chest pain Time Seen by Provider: 07/24/23 05:33 - History of Present Illness Initial comments: This is a 63-year-old female with a past medical history including hyperlipidemia presents emergency department for central chest pain. The patient stated that this pain woke her up out of sleep at 4 AM and stated that it does radiate to her back. The patient stated that she had a similar pain before when her son but stated that she does not have any cardiac stents. The patient denied any nausea or vomiting as well as any diaphoresis. The patient was otherwise resting in bed company. The patient denied any trauma to the chest but did state that the pain is worse with movement. (Abrahan Maldonado) - Related Data Home Medications Medication Instructions Recorded Confirmed Aspirin [Adult Low Dose Aspirin EC] 81 mg PO DAILY 03/07/21 03/07/21 Atorvastatin [Lipitor] 40 mg PO HS 03/07/21 03/07/21 Escitalopram [Lexapro] 5 mg PO HS 03/07/21 03/07/21 Previous Rx's Medication Instructions Recorded Clindamycin [Cleocin] 450 mg PO TID 7 Days #63 capsule 05/27/23 Allergies Allergy/AdvReac Type Severity Reaction Status Date / Time No Known Allergies Allergy Verified 07/24/23 05:32 Review of Systems ROS Other: All systems not noted in ROS Statement are negative. <Abrahan Maldonado - Last Filed: 07/24/23 06:35> ROS Other: All systems not noted in ROS Statement are negative. <Matt Yepez - Last Filed: 07/24/23 08:27> ROS Statement: Those systems with pertinent positive or pertinent negative responses have been documented in the HPI. Past Medical History Past Medical History: Cancer, Hyperlipidemia, Myocardial Infarction ([place]) Additional Past Medical History / Comment(s): rectal cancer, 3 past [place] Last Myocardial Infarction Date:: LAST [place] 2016 History of Any Multi-Drug Resistant Organisms: None Reported Past Surgical History: Section Additional Past Surgical History / Comment(s): COLONOSCOPY Past Anesthesia/Blood Transfusion Reactions: Motion Sickness Past Psychological History: No Psychological Hx Reported Smoking Status: Former smoker Past Alcohol Use History: None Reported Past Drug Use History: None Reported - Past Family History Sister(s) Family Medical History: Cancer <Abrahan Maldonado - Last Filed: 07/24/23 06:35> General Exam Limitations: no limitations General appearance: alert, in no apparent distress Head exam: Present: atraumatic, normocephalic, normal inspection Eye exam: Present: normal appearance, PERRL Pupils: Present: normal accommodation ENT exam: Present: normal exam, normal oropharynx, mucous membranes moist Neck exam: Present: normal inspection, full ROM Respiratory exam: Present: normal lung sounds bilaterally, chest wall tenderness (TTP over the lower sternum) Cardiovascular Exam: Present: regular rate, normal rhythm GI/Abdominal exam: Present: soft, normal bowel sounds Extremities exam: Present: normal inspection, full ROM Back exam: Present: normal inspection, full ROM Neurological exam: Present: alert, oriented X3, CN II-XII intact Psychiatric exam: Present: normal affect, normal mood Skin exam: Present: warm, dry <Abrahan Maldonado - Last Filed: 07/24/23 06:35> Course Vital Signs 07/24/23 05:30 Temperature 97.5 F L Pulse Rate 77 Respiratory 19 Rate Blood Pressure 112/73 O2 Sat by Pulse 98 Oximetry EKG Findings - EKG Comments: EKG Findings:: An EKG was obtained and was interpreted by myself showing a rate of 66, MA interval 185, QRS duration 82 and QTC of 438. This EKG showed a normal sinus rhythm with no ST segment elevation or depression noted. <Abrahan Maldonado - Last Filed: 07/24/23 06:35> Medical Decision Making - Lab Data Result diagrams: 07/24/23 05:42 07/24/23 05:42 <Abrahan Maldonado - Last Filed: 07/24/23 06:35> - Lab Data Result diagrams: 07/24/23 05:42 07/24/23 05:42 <Matt Yepez - Last Filed: 07/24/23 08:27> - Medical Decision Making Was pt. sent in by a medical professional or institution (, PA, CORPORATE COUNSEL, urgent care, hospital, or fpc...) When possible be specific @ -No Did you speak to anyone other than the patient for history (EMS, parent, family, police, friend...)? What history was obtained from this source @ -No Did you review nursing and triage notes (agree or disagree)? Why? @ -I reviewed and agree with nursing and triage notes Were old charts reviewed (outside hosp., previous admission, EMS record, old EKG, old radiological studies, urgent care reports/EKG's, fpc records)? Report findings @ -No old charts were reviewed Differential Diagnosis (chest pain, altered mental status, abdominal pain women, abdominal pain men, vaginal bleeding, weakness, fever, dyspnea, syncope, headache, dizziness, GI bleed, back pain, seizure, CVA, palpatations, mental health)? @ -ACS, chest wall muscle strain, pneumonia EKG interpreted by me (3pts min.). @ -As above X-rays interpreted by me (1pt min.). @ -Chest x-ray was ordered however was to pending at this time. CT interpreted by me (1pt min.). @ -None done U/S interpreted by me (1pt. min.). @ -None done What testing was considered but not performed or refused? (CT, X-rays, U/S, labs)? Why? @ -None What meds were considered but not given or refused? Why? @ -None Did you discuss the management of the patient with other professionals (pr ofessionals i.e. , PA, CORPORATE COUNSEL, lab, RT, psych nurse, social research assistant, office clerk, teacher, stream control officer, behavioral health case manager)? Give summary @ -No Was smoking cessation discussed for >3mins.? @ -No Was critical care preformed (if so, how long)? @ -No Were there social determinants of health that impacted care today? How? (Homelessness, low income, unemployed, alcoholism, drug addiction, transport ation, low edu. Level, literacy, decrease access to med. care, long term, rehab)? @ -No Was there de-escalation of care discussed even if they declined (Discuss DNR or withdrawal of care, Hospice)? DNR status @ -No What co-morbidities impacted this encounter? (DM, HTN, Smoking, COPD, CAD, Cancer, CVA, ARF, Chemo, Hep., AIDS, mental health diagnosis, sleep apnea, morbid obesity)? @ -Hyperlipidemia, rectal cancer in remission Was patient admitted / discharged? Hospital course, mention meds given and route, prescriptions, significant lab abnormalities, going to OR and other pertinent info. @ -The patient was seen and evaluated emergency department. Physical exam, the patient was resting in bed without any acute distress. Vital signs admission were stable. Due to the nature the patient's complaints, laboratory workup and chest x-ray was obtained. Workup was to pending at this time and will be sent out to the oncoming physician, Dr. Yepez. The patient was signed out in stable condition. (Abrahan Maldonado) Chest x-ray interpreted by myself shows questionable infiltrate right lower lobe. Patient reevaluated and resting comfortably in bed. Patient states discomfort does feel similar to her previous heart attack. Patient is updated on results and plan. Case was discussed with Dr. Smith, who will admit covering Dr. Varela. Admission orders written. Blood cultures and lactic acid have been ordered. IV antibiotics ordered. D-luis f izabela added. Patient will be admitted. Admission orders written. (Matt Yepez) - Lab Data Lab Results 07/24/23 07/24/23 07/24/23 Range/Units 05:42 05:42 05:42 WBC 7.3 (3.8-10.6) k/uL RBC 4.19 (3.80-5.40) m/uL Hgb 12.6 (11.4-16.0) gm/dL Hct 38.1 (34.0-46.0) % MCV 90.9 (80.0-100.0) fL MCH 30.1 (25.0-35.0) pg MCHC 33.1 (31.0-37.0) g/dL RDW 13.5 (11.5-15.5) % Plt Count 191 (150-450) k/uL MPV 7.7 Neutrophils % 69 % Lymphocytes % 20 % Monocytes % 5 % Eosinophils % 4 % Basophils % 0 % Neutrophils # 5.1 (1.3-7.7) k/uL Lymphocytes # 1.5 (1.0-4.8) k/uL Monocytes # 0.4 (0-1.0) k/uL Eosinophils # 0.3 (0-0.7) k/uL Basophils # 0.0 (0-0.2) k/uL PT 9.7 (9.0-12.0) sec INR 0.9 (<1.2) APTT 23.9 (22.0-30.0) sec Sodium 139 (137-145) mmol/L Potassium 3.8 (3.5-5.1) mmol/L Chloride 109 H (98-107) mmol/L Carbon Dioxide 22 (22-30) mmol/L Anion Gap 8 mmol/L BUN 21 H (7-17) mg/dL Creatinine 0.68 (0.52-1.04) mg/dL Est GFR (CKD-EPI)AfAm >90 (>60 ml/min/1.73 sqM) Est GFR (CKD-EPI)NonAf >90 (>60 ml/min/1.73 sqM) Glucose 95 (74-99) mg/dL Calcium 9.6 (8.4-10.2) mg/dL Magnesium 1.9 (1.6-2.3) mg/dL Total Bilirubin 0.4 (0.2-1.3) mg/dL AST 37 H (14-36) U/L ALT 33 (4-34) U/L Alkaline Phosphatase 94 (38-126) U/L Troponin I (0.000-0.034) ng/mL NT-Pro-B Natriuret Pep 25 pg/mL Total Protein 6.8 (6.3-8.2) g/dL Albumin 3.8 (3.5-5.0) g/dL 07/24/23 Range/Units 05:42 WBC (3.8-10.6) k/uL RBC (3.80-5.40) m/uL Hgb (11.4-16.0) gm/dL Hct (34.0-46.0) % MCV (80.0-100.0) fL MCH (25.0-35.0) pg MCHC (31.0-37.0) g/dL RDW (11.5-15.5) % Plt Count (150-450) k/uL MPV Neutrophils % % Lymphocytes % % Monocytes % % Eosinophils % % Basophils % % Neutrophils # (1.3-7.7) k/uL Lymphocytes # (1.0-4.8) k/uL Monocytes # (0-1.0) k/uL Eosinophils # (0-0.7) k/uL Basophils # (0-0.2) k/uL PT (9.0-12.0) sec INR (<1.2) APTT (22.0-30.0) sec Sodium (137-145) mmol/L Potassium (3.5-5.1) mmol/L Chloride (98-107) mmol/L Carbon Dioxide (22-30) mmol/L Anion Gap mmol/L BUN (7-17) mg/dL Creatinine (0.52-1.04) mg/dL Est GFR (CKD-EPI)AfAm (>60 ml/min/1.73 sqM) Est GFR (CKD-EPI)NonAf (>60 ml/min/1.73 sqM) Glucose (74-99) mg/dL Calcium (8.4-10.2) mg/dL Magnesium (1.6-2.3) mg/dL Total Bilirubin (0.2-1.3) mg/dL AST (14-36) U/L ALT (4-34) U/L Alkaline Phosphatase (38-126) U/L Troponin I <0.012 (0.000-0.034) ng/mL NT-Pro-B Natriuret Pep pg/mL Total Protein (6.3-8.2) g/dL Albumin (3.5-5.0) g/dL Disposition <Abrahan Maldonado - Last Filed: 07/24/23 06:35> Is patient prescribed a controlled substance at d/c from ED?: No Time of Disposition: 08:23 <Matt Yepez - Last Filed: 07/24/23 08:27> Clinical Impression: Chest pain Disposition: ADMITTED IP TO THIS HOSP Referrals: Broderick Cardenas MD [Primary Care Provider] - 1-2 days
[2023-07-24 06:24] LABS: Basophils % (A) 0 %; Eosinophils # (A) 0.3 k/uL (0-0.7); Eosinophils % (A) 4 %; HCT 38.1 % (34.0-46.0); HGB 12.6 gm/dL (11.4-16.0); Lymphocytes # (A) 1.5 k/uL (1.0-4.8); Lymphocytes % (A) 20 %; MCH 30.1 pg (25.0-35.0); MCHC 33.1 g/dL (31.0-37.0); MCV 90.9 fL (80.0-100.0); Mean Platelet Volume 7.7; Monocytes # (A) 0.4 k/uL (0-1.0); Monocytes % (A) 5 %; Neutrophils # (A) 5.1 k/uL (1.3-7.7); Neutrophils % (A) 69 %; Platelet Count 191 k/uL (150-450); RBC 4.19 m/uL (3.80-5.40); RDW 13.5 % (11.5-15.5); WBC 7.3 k/uL (3.8-10.6)
[2023-07-24 06:33] LABS: ALT 33 U/L (4-34); AST 37 U/L (14-36); African American GFR (CKD) >90 (>60 ml/min/1.73 sqM); Albumin 3.8 g/dL (3.5-5.0); Alkaline Phosphatase 94 U/L (38-126); Anion Gap 8 mmol/L; Blood Urea Nitrogen 21 mg/dL (7-17); Calcium 9.6 mg/dL (8.4-10.2); Carbon Dioxide 22 mmol/L (22-30); Chloride 109 mmol/L (98-107); Glucose 95 mg/dL (74-99); Magnesium 1.9 mg/dL (1.6-2.3); Non-African American GFR(CKD) >90 (>60 ml/min/1.73 sqM); Potassium 3.8 mmol/L (3.5-5.1); Sodium 139 mmol/L (137-145); Total Bilirubin 0.4 mg/dL (0.2-1.3); Total Protein 6.8 g/dL (6.3-8.2)
[2023-07-24 06:38] LABS: INR 0.9 (<1.2); Partial Thromboplastin Time 23.9 sec (22.0-30.0); Prothrombin Time 9.7 sec (9.0-12.0)
[2023-07-24 06:41] LABS: NT-Pro-B-Type Natriuretic Pept 25 pg/mL
--- NOTE | 2023-07-24 07:25 | XR ---
EXAMINATION TYPE: XR chest 2V DATE OF EXAM: 07/24/2023 COMPARISON: NONE HISTORY: Shortness of breath TECHNIQUE: Frontal and lateral views of the chest are obtained. FINDINGS: Scattered senescent parenchymal changes noted. Hyperinflation compatible with COPD. Increased density right medial lung base may reflect developing infiltrate. Correlate clinically. Heart size is stable. Mediastinal structures are stable and grossly unremarkable. No evidence for hilar prominence. Degenerative changes dorsal spine. IMPRESSION: 1. Increased density right medial lung base may reflect developing infiltrate. Correlate clinically.
[2023-07-24] MEDS ORDERED: ASPIRIN 81 MG PO STA (08:23)
[2023-07-24] MEDS ORDERED: NITROGLYCERIN SL TABS 0.4 MG TAB SUBLINGUAL PRN (08:23)
[2023-07-24] MEDS ORDERED: AZITHROMYCIN 500 MG in SODIUM CHLORIDE 0.9% 250 ML IVPB STA (08:24)
[2023-07-24] MEDS ORDERED: PNEUMONIA PROTOCOL UTILIZED 1 EACH MISC PO PRN (08:24)
[2023-07-24] MEDS ORDERED: NITROGLYCERIN OINT 1 INCH/GM PACKET TOPICAL SCH (08:30)
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
--- NOTE | 2023-07-24 13:26 | CA ---
Stress Echo Report Terri Carter Age: 63 Gender: F : 1960 Exam Date: 07/24/2023 12:46 Exam Location: [facility] Ht (in): 65 Wt (lb): 157 Ordering Physician: Paula Lock Referring Physician: [id number] Senior Data Mining Analyst: ALVARO, Technologist Procedure CPT: Indication: CP ICD-9 Codes: Rhythm: Patient History: Chest pain Cardiac Medications: Medications in past 24 hours: Contrast: Stress Results Protocol: Marcos Total dose(mL): Exercise Duration (min:sec): 6:[address] Depression (mm): Angina Score: Epperson Score: METS: 7.1 Resting HR: 71 Resting BP: 102 / 62 Peak HR: 137 Peak BP: 171 / 60 Max Predicted HR: 158 87 % Max Predicted HR Target HR: 134 Double Product: 53921 Stress Summary: The patient's target heart rate was achieved BP Response: Normal Reason for Termination: Reached target heart rate or work-load Cardiac Symptoms: No symptoms ECG Analysis Resting ECG: Normal sinus rhythm, normal ECG Stress ECG: No abnormal ST/T wave changes with exercise Arrhythmia: None Echo Analysis Resting Echo: Normal resting echocardiogram. Peak Echo Analysis: Normal wall thickening and motion MEASUREMENTS (Male/Female) Normal Values CONCLUSIONS 1. Average exercise tolerance with normal electrocardiographic response to exercise 2. Normal stress echocardiogram with no evidence of stress- induced ischemia. Dr. Malorie Savage MD (Electronically Signed) Final Date: 24 July 2023 13:25
--- NOTE | 2023-07-24 16:17 | P.DS ---
Providers Date of admission: 07/24/23 08:23 Expected date of discharge: 07/24/23 Attending physician: Gunnar Barr MD Consults: 07/24/23 08:23 Consult Physician Urgent Consulting Provider: Roderick Erickson Consult Reason/Comments: cp Do you want consulting provider notified?: Yes Primary care physician: Broderick Cardenas MD Hospital Course: This note will serve as the H&P as well as the discharge summary. Patient is a 63-year-old female with PMH of depression, dyslipidemia that presents to the ED for chest pain. Patient reports waking up from chest pain that started out for him. Pain is located in the epigastric area and radiated to the left jaw. Pain is described as sharp and stabbing in nature. Pain was not associated with diaphoresis, nausea or vomiting. Her pain persisted for 1 hour which prompted her to come to the ED. Of note, patient reports similar episode that happened after she lost her son. She is currently going through a stressful time including a breakup with her fianc and moving homes. She currently denies any chest pain, shortness of breath, palpitations or lightheadedness. In the ED, her vital signs were stable. CBC was unremarkable. INR was 0.9. D-dimer was 0.39. CMP showed chloride of 109, BUN 21, AST 37. Lactic acid 0.6. Troponin was less than 0.0123. BNP 25. EKG showed normal sinus rhythm with no ST-T wave changes. Patient was admitted and cardiology was consulted. She underwent stress echocardiogram which showed no evidence of ischemia. She was cleared by Cardiology for discharge. She is advised follow-up with her PCP within 1-2 days of discharge. Chest x-ray showed concerns for possible right middle lobe pneumonia. She received one dose of Rocephin and azithromycin IV in the ED. I will prescribe 2 more days of azithromycin. Her symptoms could also be related to GI (gastritis or PUD). She is currently on ASA, Naproxen and Celecoxib. She should probably only take one NSAID, he will discontinued Naproxen and start her on Pepcid in the meantime. She may require endoscopy in the future if her symptoms continue. Pertinent studies include EKG, chest x-ray, stress echocardiogram. General: non toxic, no distress, appears at stated age Derm: warm, dry Head: atraumatic, normocephalic, symmetric Eyes: EOMI, no lid lag, anicteric sclera Mouth: no lip lesion, mucus membranes moist Cardiovascular: S1S2 reg, no murmur Lungs: CTA bilateral, no rhonchi, no rales , no accessory muscle use Ext: no gross muscle atrophy, no edema, no contractures Neuro: no focal neuro deficits Psych: Alert, oriented, appropriate affect Discharge Diagnosis: Chest pain, ACS ruled out, negative stress echo Possible pneumonia Elevated BUN Elevated AST Chronic conditions: Depression, dyslipidemia This complex discharge took 35 minutes to complete. Patient Condition at Discharge: Stable Plan - Discharge Summary New Discharge Prescriptions: New Azithromycin [Zithromax] 500 mg PO DAILY #2 tab Famotidine [Pepcid] 20 mg PO DAILY #30 tablet Continue Atorvastatin [Lipitor] 40 mg PO HS Escitalopram [Lexapro] 10 mg PO HS Celecoxib [CeleBREX] 200 mg PO DAILY PRN PRN Reason: Pain Potassium Gluconate 99 mg PO DAILY Calcium Carbonate [Calcium] 600 mg PO BID Aspirin [Adult Low Dose Aspirin EC] 81 mg PO DAILY #30 tab Discontinued Naproxen [EC-Naprosyn] 500 mg PO BID PRN PRN Reason: Pain Discharge Medication List Atorvastatin [Lipitor] 40 mg PO HS 03/07/21 [History] Aspirin [Adult Low Dose Aspirin EC] 81 mg PO DAILY #30 tab 07/24/23 [Rx] Azithromycin [Zithromax] 500 mg PO DAILY #2 tab 07/24/23 [Rx] Calcium Carbonate [Calcium] 600 mg PO BID 07/24/23 [History] Celecoxib [CeleBREX] 200 mg PO DAILY PRN 07/24/23 [History] Escitalopram [Lexapro] 10 mg PO HS 07/24/23 [History] Famotidine [Pepcid] 20 mg PO DAILY #30 tablet 07/24/23 [Rx] Potassium Gluconate 99 mg PO DAILY 07/24/23 [History] Follow up Appointment(s)/Referral(s): Broderick Cardenas MD [Primary Care Provider] - 1-2 days
[2023-07-24 16:34] VITALS: BP 111/67; PULSE 68; RESP 20
--- NOTE | 2023-07-24 18:03 | CA ---
Transthoracic Echo Report Name: Terri Carter Age: 63 Gender: F : 1960 Exam Date: 07/24/2023 13:10 Exam Location: [facility] Ht (in): 65 Wt (lb): 157 Ordering Physician: Paula Lock Attending/Referring Phys: [id number], [facility] Spiritual Care Coordinator Fabiola Almeida [facility] Procedure CPT: Indications: LV function, CP Cardiac Hx: Technical Quality: Fair Contrast 1: Total Dose (mL): Contrast 2: Total Dose (mL): MEASUREMENTS (Male / Female) Normal Values 2D ECHO LV Diastolic Diameter PLAX 4.0 cm 4.2 - 5.9 / 3.9 - 5.3 cm LV Systolic Diameter PLAX 2.7 cm IVS Diastolic Thickness 0.8 cm 0.6 - 1.0 / 0.6 - 0.9 cm LVPW Diastolic Thickness 0.7 cm 0.6 - 1.0 / 0.6 - 0.9 cm LV Relative Wall Thickness 0.4 LVOT Diameter 2.0 cm LA Volume 45.6 cm??? 18 - 58 / 22 - 52 cm??? M-MODE Aortic Root Diameter MM 2.5 cm LA Systolic Diameter MM 3.2 cm LA Ao Ratio MM 1.3 AV Cusp Separation MM 1.9 cm DOPPLER AV Peak Velocity 122.3 cm/s AV Peak Gradient 6.0 mmHg AV Mean Velocity 83.8 cm/s AV Mean Gradient 3.2 mmHg AV Velocity Time Integral 25.5 cm LVOT Peak Velocity 107.8 cm/s LVOT Peak Gradient 4.7 mmHg LVOT Velocity Time Integral 22.1 cm LVOT Stroke Volume 72.0 cm??? LVOT Stroke Volume Index 40.3 ml/m??? LVOT Cardiac Index 2727.2 cm???/min???m??? AV Area Cont Eq vti 2.8 cm??? AV Area Cont Eq pk 2.9 cm??? MV Area PHT 4.0 cm??? Mitral E Point Velocity 77.2 cm/s Mitral A Point Velocity 76.8 cm/s Mitral E to A Ratio 1.0 MV Deceleration Time 191.4 ms LV E' Lateral Velocity 10.3 cm/s Mitral E to LV E' Lateral Ratio 7.5 LV E' Septal Velocity 7.7 cm/s Mitral E to LV E' Septal Ratio 10.0 TR Peak Velocity 210.8 cm/s TR Peak Gradient 17.8 mmHg Right Atrial Pressure 3.0 mmHg Pulmonary Artery Systolic Pressu 20.8 mmHg Right Ventricular Systolic Press 20.8 mmHg FINDINGS Left Ventricle Left ventricular wall thickness normal. Left ventricular cavity size normal. Normal left ventricular systolic function with no obvious regional wall motion abnormalities. Left ventricular ejection fraction is estimated at 55-60%. Right Ventricle Normal right ventricular size. Right Atrium Normal right atrial size. Left Atrium Normal left atrial size. Mitral Valve Structurally normal mitral valve. Trace mitral regurgitation. Aortic Valve Trileaflet aortic valve. No aortic regurgitation. Tricuspid Valve Structurally normal tricuspid valve. Trace tricuspid regurgitation. Pulmonic Valve Structurally normal pulmonic valve. Trace pulmonic regurgitation. Pericardium Echo free space anterior to the right ventricle likely represents a fat pad. Aorta Normal size aortic root and proximal ascending aorta. CONCLUSIONS 1. Normal left ventricle size and systolic function 2. No significant valvular abnormality Previewed by: Dr. Malorie Savage MD (Electronically Signed) Final Date: 24 July 2023 18:02
[2023-07-24] MEDS ORDERED: ATORVASTATIN 40 MG TAB PO SCH (21:00)
[2023-07-25] MEDS ORDERED: ASPIRIN 81 MG PO SCH (09:00)
[2023-07-25] MEDS ORDERED: AZITHROMYCIN 500 MG TAB PO SCH (09:00)
[2023-07-25] MEDS ORDERED: ASPIRIN 325 MG TAB PO SCH (09:00)
== END 2023-07-24 17:24 | disposition home or self-care (01) ==
LOC: EC 05:26 → 6NMEDSUR 08:23
PROVIDERS: ADMIT Student in an Organized Health Care Education/Training Program; ATTEND Student in an Organized Health Care Education/Training Program
DX: R07.9 Chest pain, unspecified (principal); E78.5 Hyperlipidemia, unspecified; F32.A Depression, unspecified; R74.01 Elevation of levels of liver transaminase levels; R94.4 Abnormal results of kidney function studies; I25.2 Old myocardial infarction; Z85.048 Personal history of other malignant neoplasm of rectum, rectosigmoid junction, and anus; Z87.891 Personal history of nicotine dependence; Z79.82 Long term (current) use of aspirin; Z79.899 Other long term (current) drug therapy
CPT/HCPCS: 96365; 96366; 96367; 96375; 99285; 36415; 93005; 93306; 93351; 85379; 83880; 80053; 83605; 83735; 84484; 85025; 85610; 85730; 87040; 71046; G0378; J0456; J0696; J1885

== ENCOUNTER → 2023-07-28 | Outpatient (CLI) | payer OTHER ==
[2023-07-28 20:48] LABS: ALT 19 U/L (8-44); AST 19 U/L (13-35); Albumin 4.5 d/dL (3.8-4.9); Albumin/Globulin Ratio 1.73 Ratio (1.60-3.17); Alkaline Phosphatase 98 U/L (41-126); BUN/Creat Ratio 24.75 Ratio (12.00-20.00); Blood Urea Nitrogen 19.8 mg/dL (9.0-27.0); Calcium 9.6 mg/dL (8.7-10.3); Carbon Dioxide 23.3 mmol/L (21.6-31.8); Chloride 105 mmol/L (96-109); Globulin 2.6 d/dL (1.6-3.3); Glucose 83 mg/dL (70-110); Potassium 4.1 mmol/L (3.5-5.5); Sodium 140 mmol/L (135-145); Total Bilirubin 0.5 mg/dL (0.3-1.2); Total Protein 7.1 d/dL (6.2-8.2)
== END | disposition home or self-care (01) ==
LOC: LABWHC1 15:14
PROVIDERS: ATTEND Family Medicine
DX: Z09 Encounter for follow-up examination after completed treatment for conditions other than malignant neoplasm (principal)
CPT/HCPCS: 36415; 80053

== ENCOUNTER → 2023-09-02 | Outpatient (CLI) | payer OTHER | END | disposition home or self-care (01) | LOC: LABPAT 09:05 | PROVIDERS: ATTEND Orthopaedic Surgery | DX: Z01.812 Encounter for preprocedural laboratory examination (principal); M50.20 Other cervical disc displacement, unspecified cervical region; M47.22 Other spondylosis with radiculopathy, cervical region; Z22.322 Carrier or suspected carrier of Methicillin resistant Staphylococcus aureus | CPT/HCPCS: 86850; 86900; 86901; 87070 ==

== ENCOUNTER 2023-09-10 11:14 | Day surgery (SDC) | payer OTHER ==
[2023-09-07 14:48] VITALS: BMI 23.5
--- NOTE | 2023-09-10 07:49 | P.HPOR ---
History of Present Illness H&P Date: 09/02/23 .D:Date: 09/02/23 : 12:46pm .T:Title: *[facility] History and Physical Date of :62 [id number]: NKDA Age: 63 year Height: 5'7" Weight: 157 lbs BMI: 24.59 kg/m2 Occupation: Retired VAS: 5 CHIEF COMPLAINT: Preoperative evaluation for C4-5 total disc replacement DOI: Chronic DOS: n/a Duration of current treatment regiment:n/a HISTORY : Xrays No new x-rays completed in office today Trauma or injury [id number] Work-Related No Pain description Constant, sharp, shooting Location Posterior Patient notes that their pain radiates to bilateral upper extremities Activity Modification Yes Hand Dominance Right TREATMENTS COMPLETED: 6 weeks of PT completed? Month and Year of last PT date? Yes, How many sessions? 2 Did it help? Yes Physician directed home exercise completed? Yes, Patient completed for 20min/day twice a week for 6 weeks; without relief of her symptoms. Medications Yes; List: Tylenol Alternative interventions Chiropractic:No Massage therapy:Yes R.I.C.E:Yes Brace:No Injections No RFA: No SUBJECTIVE: Ms. Carter returns to the office today for a preoperative evaluation preceeding her C4-5 total disc replacement. Otherwise the patient denies any f/c/sob/cp, no bladder or bowel retention/incontinence, no perineal numbness/tingling, and ambulates independently today. HPI: Ms. Carter returned to the office on 07/17/2023 regarding for a re-check of her neck pain.The patient continues to report experiencing a continued sharp, shooting pain throughout the neck that radiates down into the bilateral upper extremities, associated with numbness and tingling. Patient has completed physical therapy with no relief of her symptoms. She has been continuing with the home exercise program with no relief as well. The patient states that her pain is exacerbated by any quick movements of the neck or overhead movements. The patient reports experiencing mild to moderate sleep disturbances due to her ongoing pain and associated symptoms. Patient also recently trialed a medrol dosepak with minimal relief. The patient has trialed conservative treatment measures in the form of physical therapy, at home stretches/exercises, at home heat/ice therapies, massage therapy, activity medication, and medication management. The patient is currently taking Naproxen and Aspirin. Otherwise the patient denies any f/c/sob/cp, no bladder or bowel retention/incontinence, no perineal numbness/tingling, and ambulates independently today. Ms. Carter returns to the office on 05/25/23 for a re-check of her neck pain and to review recent MRI of the cervical spine results.The patient reports experiencing a continued sharp, shooting pain throughout the neck that radiates down into the bilateral upper extremities. The patient notes that her upper extremity pain is associated wit numbness and tingling. The patient does report that her neck pain and range of motion has improved after starting physical therapy. The patient notes that she has been having many more good days than bad days over the last 2 to 3 weeks. The patient states that her pain is exacerbated by any quick movements of the neck or when ambulating the arms above the head. The patient reports experiencing mild to moderate sleep disturbances due to her ongoing pain and associated symptoms. The patient has trialed conservative treatment measures in the form of physical therapy, at home stretches/exercises, at home heat/ice therapies, massage therapy, activity medication, and medication management. The patient reports experiencing relief after trialing physical therapy, activity modification, and medication management. The patient is currently taking Celebrex, Flexeril, Naproxen, and Tylenol. Otherwise the patient denies any f/c/sob/cp, no bladder or bowel retention/incontinence, no perineal numbness/tingling, and ambulates independently today today. The patients' past social, medical, family, surgical history, as well as review of systems, have been reviewed. Please refer to the Neurosurgery History and Physical form that has been scanned in to our electronic medical record system. 14 points review of systems completed and as stated in HPI, all other systems reviewed are negative. Social History: [id number]:never a smoker P3 Alcohol:none P3 Family History:Reviewed, see appropriate section of the chart for details. P2 Past Medical History:Reviewed, see appropriate section of the chart for details. A2Nankbqw Medications: Rx: aspirin 81 mg tablet,delayed release Ref: 0 Rx: atorvastatin 40 mg tablet Ref: 0 Rx: escitalopram 10 mg tablet Ref: 0 Rx: naproxen 500 mg tablet Ref: 0 Rx: Tylenol Extra Strength 500 mg tablet Ref: 0 P1 PHYSICAL EXAMINATION: General:Awake, alert, appropriate for age, in no acute distress. HEENT:No unusual neck masses around region of lateral neck triangle, thyroid, supraclavicular groove Heart:Regular rate and rhythm, normal S1, S2 and no murmur/gallop. Lungs:Clear to auscultation bilaterally with no use of accessory muscles. Extremities:Skin warm and dry without acute lesions, coloration, temperature, skin intact, no tenderness or erythema Integument: Hairy patches:ABSENT Dorsal skin dimples:ABSENT Cafe au lait spots:ABSENT Surgical incisions:n/a Palpation: Please see Pain drawing on Intake sheet for further detail. Midline spinal tenderness:yes E6 Cervical Tenderness: Yes E6 Paralumbar tenderness: No E6 Parathoracic tenderness:Yes, tight to the touch E6 Buttocks tenderness:No E6 Sacroilliac Tenderness:No POSTURAL and MUSCULO-SKELETAL EVALUATION: Coronal Balance: NEUTRAL Recumbent testing:Patient isable to lay flat on back Sagittal Balance:NEUTRAL Shoulder Profile:LEVEL Pelvic Girdle:LEVEL Neck ROM:RESTRICTED Lumbar ROM:RESTRICTED Shoulder ROM:Symmetrical Hip ROM:Symmetrical Knee ROM:Symmetrical Hands:Normal appearance, symmetrical Feet: Normal appearance, Symmetrical VASCULAR STATUS : LEFT RIGHT Wrist Pulses INTACT INTACT Pedal Pulses (Dors. pedis & post.tibialis) INTACT INTACT Color NORMAL NORMAL Edema Absent Absent NEUROLOGIC EXAMINATION: Mental Status:Awake and alert, fully oriented, with normal attention, concentration and memory, and fluent, appropriate speech. Cranial Nerves: I : Olfactory not tested. II: Visual acuity normal, no visual field deficit noted with confrontation. III,IV: Normal pupillary reflexes & intact extraocular movements without nystagmus. V,: Intact symmetrical facial sensation. VII: Intact symmetrical facial motor movement VIII: Hearing intact. IX,X: Intact gag, swallow, & normal voice. XI: Sternocleidomastoid, trapezius function intact. XII: Tongue midline with normal movements. L'hermitte's Sign: Negative / absent Spurling'Sign: Absent bilaterally. Cubital percussion test: Absent bilaterally. Anglin-Tinel sign - Carpal region: Absent bilaterally. Straight Leg Raising: Absent bilaterally. Crossed straight leg raise: negative O8 MOTOR EXAM (0-5/5, N/T Muscle appearance: Symmetrical, without signs of atrophy or dystrophy UPPER EXTREMITY RIGHT LEFT Shoulder Abduction 4/5 4/5 Biceps 4/5 4/5 Triceps 4/5 4/5 Wrist Extension 4/5 4/5 Hand Intrinsic 4/5 4/5 Hogshead Hand 4/5 4/5 Hand and finger dexterity intact bilaterally? yes Disdiadochokinesis examination negative bilaterally? no LOWER EXTREMITY RIGHT LEFT Hip Flexion 5/5 5/5 Knee Extension 5/5 5/5 Knee Flexion 5/5 5/5 Dorsiflexion 5/5 5/5 Plantarflexion 5/ 5/5 EHL 5/5 5/5 FHL 5/5 5/5 Toe heel walk / heel-toe walk intact while maintaining satisfactory balance?no Squatting/straightening w/o assistance to a min of 60 degree knee flexion? No Single leg stance:difficult needed assistance REFLEXES(0-4/2, NT)Upper ExtremityLower Extremity Right 1 2 Left Hyporeflexia Hyporeflexia Pathological Reflexes RIGHT LEFT Anglin's Positive Absent Clonus Absent Absent Babinski Absent Absent Sensory system (0-4, N/T) Test type RU GLENDY RL LL Joint-Position 2 2 2 2 Vibration 2 2 2 2 Pain & LT sense 2 2 2 2 Dermatomal Deficit: global global None None Gait and Functional Evaluation: Ambulatory aids:Independent Romberg's test:Intact bilaterally unsteady gait RADIOGRAPHIC STUDIES: No new x-rays or imaging completed. Please see previous notes. IMPRESSION: It was my pleasure to have seen and examined Terri. I reviewed the patient's clinical syndrome, physical findings, and imaging studies during the appointment today. It is my impression that the patient has a diagnosis of. 1. C4-5 herniated nucleus pulopsus 2.Neck pain 3. Upper extremity radiculopathy, right 4. Upper extremity weakness, right I outlined the natural course history without intervention and various interventional options. PLAN: Based on my findings I suggest the following course of action: -I discussed treatment options with the patient, including operative and non- operative options, and they have elected to proceed with the following surgical procedure: C4-5 Total Disc Replacement The indications, risks, benefits, and alternatives to surgery were discussed with the patient at length. Specifically (but not limited to) the risks of infection, stiffness, recurrence of symptoms, need for revision surgery, local numbness, neurovascular injury, and blood clots were discussed. The patient's questions were answered. The decision to proceed was made. Consent will be obtained for the procedure. - Ambulate daily - Take medications as directed - Ice and rest for pain and swelling control. Spine Surgery Risk Review Ms. Carter is presenting for evaluation of neck and right upper extremity pain, right upper extremity numbness, tingling, and weakness. It was my pleasure to have seen and examined Ms. Carter. In our visit today we have had a chance to go over subjective complaints, physi marcus examination findings and treatments including the natural course history without intervention and various interventional options. The patients imaging demonstrates: [facility] CervicalSpine: - Images reviewed C4-5 HNP causing moderate central and right foraminal stenosis. There is spondylosis at this level as well. No fractures. No instability noted. Flattened cervical lordosis noted. No lesions. INCLUDEPICTURE P:\\\\ppart\\\\Files\\ \\[id number]\\\\[id number]\\\\[id number]\\\\[id number]\\\\[id number]\\\\[id number]\\\\[id number]\\\\[id number]\\\\[id number] \\\\[id number]\\\\[id number]\\\\[id number]\\\\[id number]\\\\[id number]\\\\[id number]\\\\[id number]\\\\[id number]\\\\[id number] 1\\\\[id number]\\\\[id number]\\\\[id number].PNG \\d On physical exam, Ms. Carter demonstrates: The patient continues to report experiencing a continued sharp, shooting pain throughout the neck that radiates down into the bilateral upper extremities, associated with numbness and tingling. Patient has completed physical therapy with no relief of her symptoms. She has been continuing with the home exercise program with no relief as well. The patient states that her pain is exacerbated by any quick movements of the neck or overhead movements. The patient reports experiencing mild to moderate sleep disturbances due to her ongoing pain and associated symptoms. Patient also recently trialed a medrol dosepak with minimal relief. The patient has trialed conservative treatment measures in the form of physical therapy, at home stretches/exercises, at home heat/ice therapies, massage therapy, activity medication, and medication management. I have explained to the patient that as their condition progresses it will cause further neurological deficits and eventual paralysis. Based on the patients imaging, physical exam, and the rapid progression and disabling nature of their symptoms, at this time I recommend surgery in the form of a: C4-5 Total Disc Replacement I discussed the risk and benefits of this procedure at length with Ms. Carter. The patient agreed to considered pursuing the procedure abovementioned. Prior to surgery, she should follow up with her PCP (Cardio, ID, IM etc) for clearance. Questions were invited and answered, and the patient wishes to proceed as outlined below. Currently, I am recommendin.C4-5 Total Disc Replacement 2.Follow up with PCP for surgical clearance 3.Review of surgical risks and benefits as well as an educational packet on the proposed surgical procedure. Risks: All surgical procedures come with inherent risks, including those related to positioning, anesthesia, intraoperative findings, and postoperative complications. It is important to understand that surgery does not come with any guarantee of a successful outcome as complications and adverse events are always possible. The patient was given a handout in office today discussing the surgical procedure and risks associated with the intervention, both of which were discussed with the patient. These risks include but are not limited to the following: * Experiencing same, different or even worse symptoms in back, neck, arms, or legs compared to before surgery. Requiring further surgery or other forms of treatment presently or at some time in the future at same or other levels of the intended spine surgery. On an extreme but fortunately relatively rare basis severe complication such as blindness, stroke, heart attack, temporary and/or permanent nerve injury, paralysis, coma, or may occur, sometimes without known explanation. Surgical complications may include but are not limited to risk of infection, fluid accumulation in the surgical dissection site, including a seroma or hematoma, that requires additional surgery, wound drainage, bleeding, new numbness or weakness, vision changes/loss, spinal fluid leakage, non-healing and/or infected incision, headaches, difficulty or inability to swallow, hoarseness, hemopneumothorax, pneumothorax, impotence, retrograde ejaculation, vaginal dryness; injury to nerves, spinal cord, blood vessels, lymphatics or other vital organs (i.e., bowel injury, injury to the great vessels); heterotopic bone formation; complications related to the hardware such as screws, rods, cages including misplaced hardware, device failure, instrumentation at the wrong spine level, hardware fracture/breakage, or hardware loosening; vertebral failure of the spinal column above or below the newly placed hardware; retained surgical instrumentations or devices and the need for further surgery. * Medical risks of the planned spine surgery include but are not limited to generalized Infections to the whole body or local areas outside of the surgical site (sepsis), heart attack, bleeding, anaphylaxis, meningitis, seizure, epilepsy, hearing loss, burn torres, laceration of the head or other areas of the body, bruising, hypersensitivity of the skin, bladder over distension; allergic reaction; shoulder injury related to positioning; fat, blood and air clots to other areas of the body like heart, lungs, brain; failure of internal organs such as lungs, kidneys, liver and excessive b leeding. If blood transfusions are necessary, note that transfusions may cause intolerance reactions such as anaphylaxis or other complex reactions. Despite best efforts, the results of spine surgery might not heal in terms of bone, soft tissues such as skin, fascia, ligaments, and joints. Additionally, in order to achieve best possible results, spine surgery may be carried out beyond the initially planned levels and involve decompression, fusion including insertion of hardware at levels other than the original intended area of surgical interest change some portions of the procedure in order to ensure the best possible outcomes. With spine surgery and spinal fusion, there are different off label uses of instrumentation (devices, implants and hardware) as well as biological substances (bone morphogenic proteins, demineralized bone matrix) as well as using extra bone from allograft sources (i.e. cadaver bone) or autograft (iliac crest bone, ribs, or the spine itself). The patient has been given information about these practices and their inherent risks and benefits. [facility] is an educational center that serves as a training facility for neurosurgical and orthopedic [employer] and Nursing students. Physician assistants are medically trained surgical providers who function in the outpatient, inpatient, and operating room setting under the direct supervision of the atten ding surgeon. [facility] has multiple operating rooms with single and overlapping rooms running daily. They currently function under the required guidelines as produced by the Senate Finance Committee with regards to the overlapping rooms and will continue to comply with changes to this policy as they occur. The requirements include and are complied with as follows: (1) the critical portions of the overlapping rooms will not occur at the same time, (2) the attending physician will be physically present during the critical portions of the procedure and immediately available during the entire case, and (3) a back-up attending is designated should the primary attending not be immediately available. The patient has had a chance to review all the listed information, has been given print outs detailing this information, and has had all his/her questions answered to their satisfaction. It was my pleasure to have seen and examined Ms. Carter. In our visit today we have had a chance to go over my understanding of our patient's current condition, the natural course history without intervention and various interventional options. Questions were invited and answered, and the patient wishes to proceed as outlined above. I have seen and examined the patient for 25 minutes and we have spent more than 50% of the time in repeat and detailed counseling about the patient's condition, its natural course history with out and as much as can be predicted with surgery and re-review of various surgical treatment options. In conclusion, Ms. Carter requested we proceed with the above suggested surgery and are willing to accept risks and limitations of the suggested surgery as nature of the disease process and our best attempts at treatment for the condition. Thank you again for allowing us to be part of your patient's care. Please don't hesitate to contact me if you have any further questions. Follow-up: Post Op Patient Education: (Informational booklet, instructions, etc) given at today's appointment: Yes .ED:Patient Education: Y Medications Reviewed: YES In our visit today Ms. Carter and I have had a chance to go over my understanding of the patient's current condition, the natural course history without intervention and various interventional options. Questions were invited and answered, and the patient wishes to proceed as outlined above. I will be sure to keep you updated afterMs. Carter returns here for further follow-up. Thank you again for your referral. Please do not hesitate to contact me if you have any further questions. Signed and authenticated by: [facility] [address], [address] [address] This message is confidential, intended only for the named recipient(s) and may contain information that is privileged or exempt from disclosure under applicable law. If you are not the intended recipient(s), you are notified that the dissemination, distribution or copying of this information is strictly prohibited. If you received this message in error, please notify the sender then delete this message. Patient verbalizes understanding of the information discussed. The above note was initiated by Florence Boone, physician recording patient support assistant for Dr. Evan Cleveland. This note has been reviewed by Dr. Cleveland, who has made his personal changes and impressions for this document. CC: Broderick Cardenas MD Past Medical History Past Medical History: Cancer, Hyperlipidemia, Myocardial Infarction ([place]) Additional Past Medical History / Comment(s): Hx rectal cancer in 2010 with chemo and radiation. Hx [place] X3. Last Myocardial Infarction Date:: LAST [place] 2017 History of Any Multi-Drug Resistant Organisms: None Reported Past Surgical History: Section Additional Past Surgical History / Comment(s): COLONOSCOPY. Past Anesthesia/Blood Transfusion Reactions: No Reported Reaction, Motion Sickness Past Psychological History: Anxiety, Depression Smoking Status: Former smoker Past Alcohol Use History: None Reported Additional Past Alcohol Use History / Comment(s): QUIT SMOKING AT AGE 21. Past Drug Use History: None Reported - Past Family History Sister(s) Family Medical History: Cancer Brother(s) Family Medical History: Cancer Medications and Allergies Home Medications Medication Instructions Recorded Confirmed Type Atorvastatin [Lipitor] 40 mg PO HS 03/07/21 09/07/23 History Aspirin [Adult Low Dose Aspirin EC] 81 mg PO DAILY #30 tab 07/24/23 09/07/23 Rx Calcium Carbonate [Calcium] 600 mg PO BID 07/24/23 09/07/23 History Celecoxib [CeleBREX] 200 mg PO DAILY PRN 07/24/23 09/07/23 History Escitalopram [Lexapro] 10 mg PO HS 07/24/23 09/07/23 History Potassium Gluconate 99 mg PO DAILY 07/24/23 09/07/23 History Famotidine [Pepcid] 20 mg PO QAM 09/07/23 09/07/23 History Allergies Allergy/AdvReac Type Severity Reaction Status Date / Time No Known Allergies Allergy Verified 09/07/23 14:26 Physical Examination Osteopathic Statement: *. No significant issues noted on an osteopathic structural exam other than those noted in the History and Physical/Consult.
[~2023-09-10 11:14] MED LIST changes: +ACETAMINOPHEN TAB 500 MG TAB PO PRN; +DEXAMETHASONE SOD PHOSPHATE 4 MG/ML 1 ML VIAL IV ONE; +GABAPENTIN 300 MG CAP PO PRN; +HYDROmorphone 0.5 MG/0.5 ML SYRINGE IVP PRN; -LACTATED RINGERS 1,000 ML IV SCH; +LIDOCAINE 1% (10MG/ML) FOR IV START INTRADERMA PRN; +MIDAZOLAM 2 MG/2 ML VIAL IV PRN; +ONDANSETRON 4 MG/2 ML VIAL IVP ONE; +ONDANSETRON 4 MG/2 ML VIAL IVP PRN; +TRANEXAMIC 1,000 MG/100ML-NACL 1,000 MG in SALINE 1 100ML.BAG IVPB PRN
[2023-09-10] MEDS: LACTATED RINGERS 1,000 ML IV SCH (11:58)
[2023-09-10] MEDS ORDERED: THROMBIN (BOVINE) 5,000 UNIT VIAL TOPICAL ONE (13:35)
[2023-09-10] MEDS ORDERED: GELATIN SPONGE,ABSORB (LARGE) 1 EACH SPONGE TOPICAL ONE (13:35)
[2023-09-10] MEDS ORDERED: LACTATED RINGERS 1,000 ML IV ONE ×2 (13:35→18:21)
[2023-09-10] MEDS ORDERED: SENNOSIDES-DOCUSATE SODIUM 1 EACH TAB PO PRN (15:35)
[2023-09-10] MEDS ORDERED: MAGNESIUM HYDROXIDE 2,400 MG/30 ML CUP PO PRN (15:35)
[2023-09-10] MEDS ORDERED: HYDROmorphone 0.5 MG/0.5 ML SYRINGE IVP PRN (15:35)
[2023-09-10] MEDS ORDERED: HYDROcodone/APAP 5-325MG 1 EACH TAB PO PRN (15:35)
[2023-09-10] MEDS ORDERED: HYDROmorphone 1 MG/ML 1 ML SYRINGE IVP PRN (15:35)
--- NOTE | 2023-09-10 15:41 | XR ---
Intraoperative/procedural fluoroscopic services were provided for anterior cervical fusion. Total flu oroscopy time is 33.7 seconds with a total of 6 submitted images to PACS. Total DAP [address] ease see the operative note for further details.
--- NOTE | 2023-09-10 16:17 | P.OP ---
Date of Procedure: 09/10/23 Preoperative Diagnosis: 1. 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 C4-5 spondylosis 3. UE radiculopathy with weakness 4. Neck pain Postoperative Diagnosis: 1. 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 C4-5 spondylosis 3. UE radiculopathy with weakness 4. Neck pain Procedure(s) Performed: 1. C4-5 TDR converted to ACDF (42364) 2. C4-5 anterior non integrated plate placement (21072) 3. INsertion of biomechanical device C4-5 (27026) use of IONM Use of IO microscope Implants: -Centinal spine 6mm Large Deep (wasted) -Levant 9mm interbody -[place] plate -MagnatOs Anesthesia: GETA Surgeon: Evan Cleveland [employer] Representative #1: Carlos Saldivar (Was present and assisted with all aspects of the case from position to closure) Estimated Blood Loss (ml): 25 IV fluids (ml): 1,000 Urine output (ml): 0 Pathology: other (Anterior neck mass) Condition: stable Disposition: PACU Indications for Procedure: Ms. Carter is presenting for evaluation of neck and right upper extremity pain, right upper extremity numbness, tingling, and weakness. It was my pleasure to have seen and examined Ms. Carter. In our visit today we have had a chance to go over subjective complaints, physical examination findings and treatments including the natural course history without intervention and various interventional options. The patients imaging demonstrates: [facility] CervicalSpine: - Images reviewed C4-5 HNP causing moderate central and right foraminal stenosis. There is spondylosis at this level as well. No fractures. No instability noted. Flattened cervical lordosis noted. No lesions. INCLUDEPICTURE P:\\ppart\\Files\\[id number]\\[id number]\\[id number]\\[id number]\\[id number]\\[id number]\ \[id number]\\[id number]\\[id number]\\[id number]\\[id number]\\[id number]\\HXDC676\\[id number]\\[id number] \\[id number]\\[id number]\\[id number]\\[id number]\\[id number].PNG \d On physical exam, Ms. Carter demonstrates: The patient continues to report experiencing a continued sharp, shooting pain throughout the neck that radiates down into the bilateral upper extremities, associated with numbness and tingling. Patient has completed physical therapy with no relief of her symptoms. She has been continuing with the home exercise program with no relief as well. The patient states that her pain is exacerbated by any quick movements of the neck or overhead movements. The patient reports experiencing mild to moderate sleep disturbances due to her ongoing pain and associated symptoms. Patient also recently trialed a medrol dosepak with minimal relief. The patient has trialed conservative treatment measures in the form of physical therapy, at home stretches/exercises, at home heat/ice therapies, massage therapy, activity medication, and medication management. I have explained to the patient that as their condition progresses it will cause further neurological deficits and eventual paralysis. Based on the patients imaging, physical exam, and the rapid progression and disabling nature of their symptoms, at this time I recommend surgery in the form of a: C4-5 Total Disc Replacement I discussed the risk and benefits of this procedure at length with Ms. Carter. The patient agreed to considered pursuing the procedure abovementioned. Prior to surgery, she should follow up with her PCP (Cardio, ID, IM etc) for clearance. Questions were invited and answered, and the patient wishes to proceed as outlined below. Currently, I am recommendin.C4-5 Total Disc Replacement Description of Procedure: C4-5 ACDF The patient was seen and examined in the preoperative area. All preoperative protocols were followed. Informed consent was obtained risks and benefits of the procedure were discussed at length. Risks including bleeding infection damage to the surrounding tissue and risk of reoperation were discussed with the patient. Risk of anesthesia up to and including was a discussed with the patient. These are outlined in the risk review. They were willing to accept these risks and all the risks of surgery. The patient was given a weight-based dose of antibiotics in the form of 2 g Ancef. The patient was seen and evaluated by the anesthesia team who deemed them fit for surgery. The site was marked, the patient was willing to proceed with the procedure. The patient was transferred to the operative suite by the Department of anesthesia. They were then drifted off to sleep by the department anesthesia and GETA was performed. The patient tolerated this well. Barcenas catheter was placed by nursing staff, a-traumatically. Once confirmation of lines and ventilation the patient was transferred to a Supine Omero table very carefully. All bony prominences including wrists, elbows, axilla, chest, hips, and thighs, and feet were padded very well. Special attention was paid to the genitalia, and these were padded accordingly. SCDs were placed on bilateral lower extremities and were connected. Arms were well padded and placed at their side thumbs up. Once in position, again we confirmed good ventilation capabilities and that lines were running appropriately. The patients Cervical spine was then exposed. 1010s were placed outlining the incision site. Standard alcohol was used to clean the incision site and allowed to dry. C-arm was used to bio-bryson the patient and confirm level for incision which was marked with a skin marker. Operative briefing was performed with all teams and everyone in agreement to proceed. The patient was then prepped and draped in a normal sterile fashion. Timeout was then performed, and all parties agreed with the procedure to be performed. Transverse skin incision was then made on the right side of the patients neck 3 cm and dissection taken down to the platysma which was split transversely. Sub platysma flap was made, and interval identified between SCM and medial structures. Omohyoid was visualized and protected. Blunt dissection taken down to the anterior cervical facia which was identified. Blunt prob was then placed and lateral image taken which confirmed levels for operation. These levels were then marked with a bovi. Subperiosteal dissection of the longissimus muscles were then done over these levels identifying uncovertebral joints bilaterally. Retractor was then placed deep to these muscles and held in place with a bed arm. Hopkins pins were placed into C4 and C5 and gentle distraction taken out over the levels. Tri rongure used to remove disc material. Operating microscope brought in for visualization. Complete discectomy performed at this level with curette, rongure and pituitary. High speed isauro used to remove osteophytes anteriorly and posteriorly until PLL was identified. 6-0 up curette then used to identify the canal and resect the PLL. 2-0 and 3-0 Kerrison used then to remove PLL and disc herniation and performed b/l foraminotomies. Once good decompression accomplished, meticulous hemostasis was performed. Sizers were then placed under lateral fluoroscopy until the desired height and lordosis. Trials were placed for the TDR and AP and lateral confirmed. We then passed the chisel for the lia and the implant was then selected and impacted into place. Once in place the core inserter was attempted to be removed but would not come loose from the disc replacement. We tried everything to get it to come off and it would not loosen, instead the whole implant came out still on the core inserter. At this point, we ran motors and they were stable. We then tried replacing the implant, but it would not fit right now as it had taken bone away from the endplate when it came out. We then reverted to fusion. Sizers were placed for the cage Cage was then selected, packed with autograft and allograft and placed under lateral imaging. Once in good position it was tested and stable. Motors run before and after cage placement were stable. The wound was irrigated, and autograft placed lateral to the cage anteriorly for fusion. Hopkins pin was then removed from C4-5 and bone wax placed in their void. A separate, non-integrated plate was then selected and sized under lateral image. The plate was then placed with screws. Fixed screws drilled into C5 b/l and screws placed. Then screw placed into C4. Good purchace of all screws ob tained and the locking mechanism was set. Final AP and lateral images taken confirmed good placement of hardware and good reduction and christian of height. The wound was then irrigated copiously with NSS. Surgicel placed deep in the wound. Layered closure then performed with 3-0 Vicryl in the platysma and sub-Q tissue. 4-0 Strata fix in the subcuticular tissue. The wound was then cleaned, and dried and skin glue placed. Once glue dried an Opifoam was placed. The patient was then transferred back to their hospital bed a-traumatically. The drain continued to hold suction. They were placed in a soft collar. They were then awakened by the department of anesthesia having tolerated the procedure well without complications.
[2023-09-10] MEDS: ACETAMINOPHEN TAB 325 MG TAB PO SCH ×2 (17:52→23:39)
[2023-09-10] MEDS: HYDROcodone/APAP 10-325MG 1 EACH TAB PO PRN (22:21)
[2023-09-11] MEDS: ACETAMINOPHEN TAB 325 MG TAB PO SCH ×4 (06:05→23:30)
[2023-09-11] MEDS: LACTATED RINGERS 1,000 ML IV SCH (06:06)
[2023-09-11] MEDS: HYDROcodone/APAP 10-325MG 1 EACH TAB PO PRN ×3 (06:08→18:42)
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
[2023-09-11] MEDS: FAMOTIDINE 20 MG TAB PO SCH (07:55)
--- NOTE | 2023-09-11 08:38 | CT ---
EXAMINATION TYPE: CT cervical spine wo con DATE OF EXAM: 09/11/2023 COMPARISON: 10/25/2020 HISTORY: 63-year-old female postoperative evaluation, S/P C4-C5 ACDF TECHNIQUE: Contiguous axial scanning of the cervical spine without IV contrast. Coronal and sagittal reconstructions performed. CT DLP: 392.9 mGycm Automated exposure control for dose reduction was used. FINDINGS: Incidental scattered prominent dental caries are noted. No craniocervical junction abnormality or predental space widening. There are postoperative changes of C4-C5 ACDF. Orthopedic hardware appears appropriately positioned a nd alignment is maintained. There are recent postoperative changes with prevertebral soft tissue swelling and foci of air. Additi onal air and some edema along the anterior neck soft tissues relating to anterior surgical approach. Moderate degenerative disc disease C6-C7. No evident canal compromise by CT. Biapical pleural parenchymal scarring noted. IMPRESSION: 1. UNCOMPLICATED APPEARANCE TO THE C4-C5 ACDF WITH RECENT POSTOPERATIVE CHANGES. 2. INCIDENTAL PROMINENT DENTAL CARIES.
[2023-09-11] MEDS ORDERED: ONDANSETRON 4 MG/2 ML VIAL IVP PRN (11:00)
[2023-09-11 11:06] LABS: Basophils # (A) 0.04 X 10*3/uL (0.00-0.10); Basophils % (A) 0.4 %; Eosinophils # (A) 0.06 X 10*3/uL (0.04-0.35); Eosinophils % (A) 0.6 %; HCT 37.2 % (37.2-46.3); HGB 12.1 d/dL (12.0-15.0); Lymphocytes # (A) 1.34 X 10*3/uL (0.90-5.00); Lymphocytes % (A) 13.8 %; MCH 29.5 pg (27.0-32.0); MCHC 32.5 d/dL (32.0-37.0); MCV 90.7 FL (80.0-97.0); Mean Platelet Volume 10.2 FL (9.5-12.2); Monocytes # (A) 0.45 X 10*3/uL (0.20-1.00); Monocytes % (A) 4.6 %; NRBC Per 100 WBC 0 X 10*3/uL (0.00-0.01); Neutrophils # (A) 7.79 X 10*3/uL (1.80-7.70); Neutrophils % (A) 80.3 %; Platelet Count 173 X 10*3/uL (140-440); WBC 9.71 X 10*3/uL (4.50-10.00)
[2023-09-11 11:22] LABS: Calcium 8.6 mg/dL (8.7-10.3); Carbon Dioxide 25.7 mmol/L (21.6-31.8); Chloride 104 mmol/L (96-109); Glucose 102 mg/dL (70-110); Potassium 3.7 mmol/L (3.5-5.5); Sodium 138 mmol/L (135-145)
[2023-09-11] MEDS: CYCLOBENZAPRINE 5 MG TAB PO PRN ×2 (11:51→21:03)
--- NOTE | 2023-09-11 13:56 | P.PN ---
Subjective Progress Note Date: 09/11/23 No new complaints. Had some nausea earlier with an episode of emesis. Gen: awake, alert HEENT: normocephalic, atraumatic, good hearing acuity, moist mucous membranes Resp: good air exchange, breathing comfortably with no accessory muscle use CVS: good distal perfusion x 4, GI: soft, NTTP, ND : no SPT, no CVAT, escoto catheter not present MSK: no pitting edema, no clubbing Neuro: non-focal, moving all extremities Psych: cooperative, euthymic mood Assessment/plan: h/o CAD resume aspirin when cleared by orthopedic resume statin no chest pain at this time Nausea and vomiting -Start Zofran 4 mg every 6 hours when necessary cervical spine surgery POD zero pain control per orthopedic team stable from medical stand point at this time check CBC , BPM in am thank you for this consultation Objective - Vital Signs Vital signs: Vital Signs Temp 97.6 F 09/11/23 13:14 Pulse 87 09/11/23 13:14 Resp 20 09/11/23 13:14 BP 99/60 09/11/23 13:14 Pulse Ox 94 L 09/11/23 13:14 FiO2 Intake & Output 09/10/23 09/11/23 09/11/23 18:59 06:59 18:59 Intake Total 1550 Output Total 25 Balance 1525 Weight 71.2 kg 71.2 kg Intake: IV 1550 Output: Estimated Blood Loss 25 Other: # Voids 1 - Labs CBC & Chem 7: 09/11/23 07:23 09/11/23 07:23 Labs: Abnormal Lab Results - Last 24 Hours (Table) 09/11/23 09/11/23 Range/Units 07: 07:23 Neutrophils # 7.79 H (1.80-7.70) X 10*3/uL Calcium 8.6 L (8.7-10.3) mg/dL
--- NOTE | 2023-09-11 14:22 | P.DS ---
Providers Date of admission: 09/10/2023 Expected date of discharge: 09/11/23 Attending physician: Evan Cleveland DO Consults: 09/10/23 15:35 Consult Physician Routine Consulting Provider: Natalie Buckley Reason/Comments: medical management s/p s/p C4-C5 ACDF Do you want consulting provider notified?: Yes Primary care physician: Broderick Cardenas MD Hospital Course: Date of admission: 09/10/2023 Date of discharge: 09/11/2023 Admission diagnosis: 1. 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 C4-5 spondylosis 3. UE radiculopathy with weakness 4. Neck pain Discharge diagnosis: Same Attending physician: Dr. Cleveland Surgical procedures: 1. 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 At this point patient has failed conservative treatment measures and has opted to proceed with a elective C4-5 TDR converted to ACDF Hospital course: Details of patient's surgery can be found in operative report. Patient tolerated the procedure well and was subsequently transported to orthopedic floor. Patient's orthopeidc and medical care was provided daily. Patient had daily laboratory tests performed for evaluation of overall blood counts. Patient had daily physical therapy to include strengthening range of motion as well as education with walker ambulation. Patient was noted to have a relatively uneventful postoperative course. Patient reported satisfactory pain control with oral pain medications by postoperative day 1. Patient showed satisfactory progress with physical therapy. Patient moved steadily through the program and had no difficulty meeting the goals by postoperative day 1. Given patient's otherwise satisfactory course and having met physical therapy goals, plan is to discharge patient to rehab on postoperative day 1. Discharge condition/disposition: Patient will be discharged to rehab in stable condition. Discharge medications: Instructions are given on resumption of patient's normal daily medications per primary care recommendation, in addition patient will be prescribed [place]; Lyrica; senna; Flexeril; Duricef. Spine Discharge and Recovery Instructions Date of Surgery: 09/10/2023 Diagnosis: 1. 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 C4-5 spondylosis 3. UE radiculopathy with weakness 4. Neck pain Surgical procedures: 1. C4-5 TDR converted to ACDF F Medications: See medication list All medication refills should be obtained through your primary care doctor or your clinic spine surgeon. Please discuss prescription refills at your follow up appointment. Do not call the hospital for medication refills. Dressing: Leave your dressing in place for a total of 5 days post operatively. Then you may remove your dressing and leave open to air. Keep the area clean and if not able to keep area clean, then cover with sterile gauze and tape. Showering: You may shower 3 days after your procedure allowing soap and water to run over incision. Do not scrub. Do not soak. Blot dry. Follow up: Please confirm a follow up appointment with your surgeon 3 weeks post operatively. Please make an appointment to follow up with your PCP in 1-2 weeks after surgery for evaluation 3 phase, 3-week plan POST OP WEEKS 1-3 1. Lifting/carrying/pushing/pulling limited to less than 5 pounds. 2. Do not sit for longer than 15 minutes at one time. Get up and walk around. Prolonged sitting is NOT advised. If you lay down, see if you can tolerate laying down on you front (belly side) 3. Walk for periods of 15 minutes = 1 mile but no longer; do it multiple times times each day. 4. Ice your low back after activity. POST OP WEEKS 3-6 1. Lifting limited to less than 20 pounds. 2. Do not sit for longer than 30 minutes at a time. Frequently change positions. Use a sit-to stand workstation or take frequent breaks from sitting if you have returned to work. 3. Walk for 30 minutes each day. If possible, do these three or more times a day POST OP WEEKS 6+ At your 6-week appointment we will give you a physical therapy referral to focus on a core stabilization and strengthening program. You should also work on leg & buttock strengthening, hamstring & quadriceps stretching, and continue a low impact aerobic activity program such as swimming, walking, or riding a stationary bicycle. During the initial 6 weeks after your surgery, you are at the highest risk of re-injuring your spine. You should generally avoid BLTs (bending, lifting and twisting combination motions) and follow the above guidelines to reduce the chance of reinjury. You can anticipate post op appointments in our office at approximately 3 weeks and 6 weeks after your surgery. INCISION CARE: If your incision is not draining you do NOT need to cover it with a dressing. Keep your incision clean, dry and intact. In most cases, we apply skin glue, carlito or sutures to the incision at the time of surgery. This will be like a crust or have the appearance of a scab and will fall off in time on its own. The stitches or carlito need to be removed at 3 weeks post op appointment. You may begin to shower 3 days after surgery (this allows the glue to casillas well). However, please avoid scrubbing the incision site or peeling off any of the skin glue. This will ensure optimal healing of your incision. Also, during this time avoid soaking the incision area in water - this includes swimming pools, hot tubs or baths. No ointments, lotions or oils on the incision until your surgeon allows. Leave carlito, sutures or glue in place. Neurological dysfunction that comes on suddenly can also be a sign of a stroke. Below some common symptoms of a stroke are listed: B - balance difficulty such as sudden onset walking or leaning to one side - NEW E - eye problem such as sudden double vision or trouble seeing on one side - NEW F - Facial weakness or numbness on one side - NEW A - Arm or leg weakness or numbness on one side - NEW S - Slurred speech or difficulty with word finding - NEW T - Time is BRAIN! Call 911 as soon as you recognize these symptoms Diet: Consume a regular diet rich in vegetables and lean protein such as chicken or fish. You should consume in a ratio of approximately 20% fats|40% carbohydrates|40%protein. Vegetables, sweet potatoes, brown rice or quinoa are examples of good carbohydrates. Chips, white bread, cookies and sweets/sugar are examples of bad carbohydrates. Limit your bad carbs, go wild with good carbs. "Life's Simple 7" Guidelines as per [place] [employer] These will help you reclaim your life after surgery and tractor mechanic helper in your recovery, keeping in mind your restrictions. (1) Get Active. Physical activity can help people lose weight, control high blood pressure and cholesterol, feel emotionally better, and sleep better. (2) Control Cholesterol. Avoid a diet high in saturated fat, trans fat, & cholesterol. Limit whole milk & cream, ice cream, butter, egg yolks, processed meats (like sausage and hot dogs), and fatty meats. Choose healthy foods that are low in saturated fat, trans fat and cholesterol which include: Fruits and vegetables, fiber rich grain products (like whole grain pasta and brown rice), lean meat such as chicken, fish, nuts, seeds, and legumes. (3) Eat Better. Eat small portions. Shop at the grocery with a list and do not stray from it. Tips for a healthy diet include: Limit sodium intake to less than 1500mg daily, avoid prepackaged, processed, and fast foods, choose a diet rich in fruits, vegetables, and whole grain, high fiber foods, and limit saturated & cholesterol in your diet. (4) Manage Blood Pressure. If you have high blood pressure, you should have a cuff at home so that you can check your blood pressure regularly. Be sure you have a good cuff. An arm one is generally better than a wrist one. Bring the cuff to a doctor's appointment to validate that the measurements that your cuff are taking are accurate. Take your blood pressure twice daily when you are sitting down and relaxing. Record the numbers in a log and bring this log with you to your doctors' appointments. (5) Lose Weight if your BMI is above 25. A healthy BMI is between 19-25. To calculate Your BMI, you may use a Standard BMI Calculator on the NIH BMI website: <www.nhlbi.nih.gov/guidelines/obesity/BMI/bmicalc.htm>. Weigh oneself daily. If you are overweight, set a goal to lose weight. A pound a week loss if needed is a good target. (6) Reduce Blood Sugar. Limit foods and liquids with "added sugars." (Added sugars include sucrose, fructose, glucose, maltose, dextrose, high fructose corn syrup, corn syrup, concentrated fruit juice and honey). (7) Stop Smoking. If you smoke, quitting smoking is one of the best things that you can do for your health. Smoking increases your risk of heart attack, stroke, and peripheral vascular disease, which is a build-up of plaque in your arteries. Please discard all the cigarettes and lighters in your house. Have a plan for what you will do when you have the urge to smoke. Direct and second- hand smoke shortens your life as well as the lives of your family, friends and others around you. For your health and the health of those around you, please consider quitting! Proper Bending Body Mechanics: Maintain a wide stance with one foot slightly in front of the other. Keep your back straight. Bend utilizing the strength in your hips and knees. Do not bend at the waist. Maintain the lifted object at your waist-level close to your body. Avoid lifting weight that causes immediately pain or pain anywhere in the body afterwards. Smoking/Nicotine If there was ever one thing that you could do to increase your overall health, decrease your risk of cardiovascular problems by about 39% the second you make the choice, it is to STOP SMOKING. Your body's most instant gratification is the second you stop smoking. We have all heard the studies, read the articles but it is true, smoking is extremely bad for your overall health, and moreover it is detrimental to your bone health. Nicotine, IN ANY FORM, kills bone cells, prevents your body from healing fractures, and significantly prolongs healing after surgery. In spine surgery specifically, it increases your risk of not healing your bones to create a fusion and increases your risk of having a revision surgery due to this up to 60%. I know it is hard. I know it feels impossible. But there are ways. Take control of your life. We are here to help you through it. And when you are ready, ask us and we can direct you to help if you desire. Use the START Plan to Quit Smoking (please visit the Helpguide.org website listed below for more information): S = Set a quit date. Choose a date within the next 2 weeks, so you have enough time to prepare without losing your motivation to quit. If you mainly smoke at work, quit on the weekend, so you have a few days to adjust to the change. T = Tell family, friends, and co-workers that you plan to quit. Let your friends and family in on your plan to quit smoking and tell them you need their support and encouragement to stop. Look for a quit zoraida who wants to stop smoking as well. You can help each other get through the rough times. A = Anticipate and plan for the challenges you'll face while quitting. Most people who begin smoking again do so within the first 3 months. You can help yourself make it through by preparing ahead for common challenges, such as nicotine withdrawal and cigarette cravings. R = Remove cigarettes and other tobacco products from your home, car, and work. Throw away all your cigarettes (no emergency pack!), lighters, ashtrays, and matches. Wash your clothes and freshen up anything that smells like smoke. Shampoo your car, clean your drapes and carpet, and steam your furniture. T = Talk to your doctor about getting help to quit. Your doctor can prescribe medication to help with withdrawal and suggest other alternatives. If you can't see a doctor, you can get many products over the counter at your local pharmacy or grocery store, including the nicotine patch, nicotine lozenges, and nicotine gum. Resources for Quitting Smoking: <https://www.[place].gov/documents/[facility]/Quit_Tobacco_Resources_for_patient s_313480_7.pdf> Supplementation: Take recommended dosages of Vitamin D and Calcium to help fortify your bones and help them to heal. See your health maintenance packet for dosages and recom mended levels. DVT/VTE prophylaxis: You will be given compression stockings from the hospital. Wear these daily for the first two weeks after surgery. You may take them off at night. You may be prescribed a medication to help thin your blood. Take this as directed. If you are not prescribed this medication, early and frequent ambulation has been shown to be the best prophylaxis to deep vein thrombosis and sequelae related to this event. Assessment: 1. 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 C4-5 spondylosis 3. UE radiculopathy with weakness 4. Neck pain Procedures: 1. C4-5 TDR converted to ACDF Patient Condition at Discharge: Stable Plan - Discharge Summary Discharge Rx Participant: Yes New Discharge Prescriptions: New Pregabalin [Lyrica] 100 mg PO TID #21 cap Sennosides/Docusate Sodium [Senna Plus 8.6-50 mg Softgel] 1 each PO DAILY #20 capsule HYDROcodone/APAP 10-325MG [[place] 10-325] 1 tab PO Q6HR PRN #28 tab PRN Reason: Pain cefaDROXiL [Duricef] 500 mg PO Q12HR 5 Days #10 cap Cyclobenzaprine [Flexeril] 5 mg PO TID #21 tablet No Action Atorvastatin [Lipitor] 40 mg PO HS Escitalopram [Lexapro] 10 mg PO HS Celecoxib [CeleBREX] 200 mg PO DAILY PRN PRN Reason: Pain Potassium Gluconate 99 mg PO DAILY Famotidine [Pepcid] 20 mg PO QAM Calcium Carbonate [Calcium] 600 mg PO BID Aspirin [Adult Low Dose Aspirin EC] 81 mg PO DAILY #30 tab Discharge Medication List Atorvastatin [Lipitor] 40 mg PO HS 03/07/21 [History] Aspirin [Adult Low Dose Aspirin EC] 81 mg PO DAILY #30 tab 07/24/23 [Rx] Calcium Carbonate [Calcium] 600 mg PO BID 07/24/23 [History] Celecoxib [CeleBREX] 200 mg PO DAILY PRN 07/24/23 [History] Escitalopram [Lexapro] 10 mg PO HS 07/24/23 [History] Potassium Gluconate 99 mg PO DAILY 07/24/23 [History] Famotidine [Pepcid] 20 mg PO QAM 09/07/23 [History] Cyclobenzaprine [Flexeril] 5 mg PO TID #21 tablet 09/11/23 [Rx] HYDROcodone/APAP 10-325MG [[place] 10-325] 1 tab PO Q6HR PRN #28 tab 09/11/23 [Rx] Pregabalin [Lyrica] 100 mg PO TID #21 cap 09/11/23 [Rx] Sennosides/Docusate Sodium [Senna Plus 8.6-50 mg Softgel] 1 each PO DAILY #20 capsule 09/11/23 [Rx] cefaDROXiL [Duricef] 500 mg PO Q12HR 5 Days #10 cap 09/11/23 [Rx] Follow up Appointment(s)/Referral(s): Evan Cleveland DO [Doctor of Osteopathic Medicine] - 2 Weeks Activity/Diet/Wound Care/Special Instructions: Spine Discharge and Recovery Instructions Maintain dressing clean, dry, intact. Dressing may be removed beginning 09/15/2023. Okay to shower directly over incision once dressing is removed. Date of Surgery: 09/10/2023 Diagnosis: C4 to C5 disc herniation Procedure: C4 to C5 ACDF Medications: See medication list All medication refills should be obtained through your primary care doctor or your clinic spine surgeon. Please discuss prescription refills at your follow up appointment. Do not call the hospital for medication refills. Dressing: Leave your dressing in place for a total of 5 days post operatively. Then you may remove your dressing and leave open to air. Keep the area clean and if not able to keep area clean, then cover with sterile gauze and tape. Showering: You may shower 3 days after your procedure allowing soap and water to run over incision. Do not scrub. Do not soak. Blot dry. Follow up: Please confirm a follow up appointment with your surgeon 3 weeks post operatively. Please make an appointment to follow up with your PCP in 1-2 weeks after surgery for evaluation 3 phase, 3-week plan POST OP WEEKS 1-3 1. Lifting/carrying/pushing/pulling limited to less than 5 pounds. 2. Do not sit for longer than 15 minutes at one time. Get up and walk around. Prolonged sitting is NOT advised. If you lay down, see if you can tolerate laying down on you front (belly side) 3. Walk for periods of 15 minutes = 1 mile but no longer; do it multiple times times each day. 4. Ice your low back after activity. POST OP WEEKS 3-6 1. Lifting limited to less than 20 pounds. 2. Do not sit for longer than 30 minutes at a time. Frequently change positions. Use a sit-to stand workstation or take frequent breaks from sitting if you have returned to work. 3. Walk for 30 minutes each day. If possible, do these three or more times a day POST OP WEEKS 6+ At your 6-week appointment we will give you a physical therapy referral to focus on a core stabilization and strengthening program. You should also work on leg & buttock strengthening, hamstring & quadriceps stretching, and continue a low impact aerobic activity program such as swimming, walking, or riding a stationary bicycle. During the initial 6 weeks after your surgery, you are at the highest risk of re-injuring your spine. You should generally avoid BLTs (bending, lifting and twisting combination motions) and follow the above guidelines to reduce the chance of reinjury. You can anticipate post op appointments in our office at approximately 3 weeks and 6 weeks after your surgery. INCISION CARE: If your incision is not draining you do NOT need to cover it with a dressing. Keep your incision clean, dry and intact. In most cases, we apply skin glue, carlito or sutures to the incision at the time of surgery. This will be like a crust or have the appearance of a scab and will fall off in time on its own. The stitches or carlito need to be removed at 3 weeks post op appointment. You may begin to shower 3 days after surgery (this allows the glue to casillas well). However, please avoid scrubbing the incision site or peeling off any of the skin glue. This will ensure optimal healing of your incision. Also, during this time avoid soaking the incision area in water - this includes swimming pools, hot tubs or baths. No ointments, lotions or oils on the incision until your surgeon allows. Leave carlito, sutures or glue in place. Neurological dysfunction that comes on suddenly can also be a sign of a stroke. Below some common symptoms of a stroke are listed: B - balance difficulty such as sudden onset walking or leaning to one side - NEW E - eye problem such as sudden double vision or trouble seeing on one side - NEW F - Facial weakness or numbness on one side - NEW A - Arm or leg weakness or numbness on one side - NEW S - Slurred speech or difficulty with word finding - NEW T - Time is BRAIN! Call 911 as soon as you recognize these symptoms Diet: Consume a regular diet rich in vegetables and lean protein such as chicken or fish. You should consume in a ratio of approximately 20% fats|40% carbohydrates|40%protein. Vegetables, sweet potatoes, brown rice or quinoa are examples of good carbohydrates. Chips, white bread, cookies and sweets/sugar are examples of bad carbohydrates. Limit your bad carbs, go wild with good carbs. "Life's Simple 7" Guidelines as per [place] [employer] These will help you reclaim your life after surgery and tractor mechanic helper in your recovery, keeping in mind your restrictions. (1) Get Active. Physical activity can help people lose weight, control high blood pressure and cholesterol, feel emotionally better, and sleep better. (2) Control Cholesterol. Avoid a diet high in saturated fat, trans fat, & cholesterol. Limit whole milk & cream, ice cream, butter, egg yolks, processed meats (like sausage and hot dogs), and fatty meats. Choose healthy foods that are low in saturated fat, trans fat and cholesterol which include: Fruits and vegetables, fiber rich grain products (like whole grain pasta and brown rice), lean meat such as chicken, fish, nuts, seeds, and legumes. (3) Eat Better. Eat small portions. Shop at the grocery with a list and do not stray from it. Tips for a healthy diet include: Limit sodium intake to less than 1500mg daily, avoid prepackaged, processed, and fast foods, choose a diet rich in fruits, vegetables, and whole grain, high fiber foods, and limit saturated & cholesterol in your diet. (4) Manage Blood Pressure. If you have high blood pressure, you should have a cuff at home so that you can check your blood pressure regularly. Be sure you have a good cuff. An arm one is generally better than a wrist one. Bring the cuff to a doctor's appointment to validate that the measurements that your cuff are taking are accurate. Take your blood pressure twice daily when you are sitting down and relaxing. Record the numbers in a log and bring this log with you to your doctors' appointments. (5) Lose Weight if your BMI is above 25. A healthy BMI is between 19-25. To calculate Your BMI, you may use a Standard BMI Calculator on the NIH BMI website: <www.nhlbi.nih.gov/guidelines/obesity/BMI/bmicalc.htm>. Weigh oneself daily. If you are overweight, set a goal to lose weight. A pound a week loss if needed is a good target. (6) Reduce Blood Sugar. Limit foods and liquids with "added sugars." (Added sugars include sucrose, fructose, glucose, maltose, dextrose, high fructose corn syrup, corn syrup, concentrated fruit juice and honey). (7) Stop Smoking. If you smoke, quitting smoking is one of the best things that you can do for your health. Smoking increases your risk of heart attack, stroke, and peripheral vascular disease, which is a build-up of plaque in your arteries. Please discard all the cigarettes and lighters in your house. Have a plan for what you will do when you have the urge to smoke. Direct and second- hand smoke shortens your life as well as the lives of your family, friends and others around you. For your health and the health of those around you, please co nsider quitting! Proper Bending Body Mechanics: Maintain a wide stance with one foot slightly in front of the other. Keep your back straight. Bend utilizing the strength in your hips and knees. Do not bend at the waist. Maintain the lifted object at your waist-level close to your body. Avoid lifting weight that causes immediately pain or pain anywhere in the body afterwards. Smoking/Nicotine If there was ever one thing that you could do to increase your overall health, decrease your risk of cardiovascular problems by about 39% the second you make the choice, it is to STOP SMOKING. Your body's most instant gratification is the second you stop smoking. We have all heard the studies, read the articles but it is true, smoking is extremely bad for your overall health, and moreover it is detrimental to your bone health. Nicotine, IN ANY FORM, kills bone cells, prevents your body from healing fractures, and significantly prolongs healing after surgery. In spine surgery specifically, it increases your risk of not healing your bones to create a fusion and increases your risk of having a revision surgery due to this up to 60%. I know it is hard. I know it feels impossible. But there are ways. Take control of your life. We are here to help you through it. And when you are ready, ask us and we can direct you to help if you desire. Use the START Plan to Quit Smoking (please visit the Helpguide.org website listed below for more information): S = Set a quit date. Choose a date within the next 2 weeks, so you have enough time to prepare without losing your motivation to quit. If you mainly smoke at work, quit on the weekend, so you have a few days to adjust to the change. T = Tell family, friends, and co-workers that you plan to quit. Let your friends and family in on your plan to quit smoking and tell them you need their support and encouragement to stop. Look for a quit zoraida who wants to stop smoking as well. You can help each other get through the rough times. A = Anticipate and plan for the challenges you'll face while quitting. Most people who begin smoking again do so within the first 3 months. You can help yourself make it through by preparing ahead for common challenges, such as nicotine withdrawal and cigarette cravings. R = Remove cigarettes and other tobacco products from your home, car, and work. Throw away all your cigarettes (no emergency pack!), lighters, ashtrays, and matches. Wash your clothes and freshen up anything that smells like smoke. Shampoo your car, clean your drapes and carpet, and steam your furniture. T = Talk to your doctor about getting help to quit. Your doctor can prescribe medication to help with withdrawal and suggest other alternatives. If you can't see a doctor, you can get many products over the counter at your local pharmacy or grocery store, including the nicotine patch, nicotine lozenges, and nicotine gum. Resources for Quitting Smoking: <https://www.[place].gov/documents/[facility]/Quit_Tobacco_Resources_for_patients_313 480_7.pdf> Supplementation: Take recommended dosages of Vitamin D and Calcium to help fortify your bones and help them to heal. See your health maintenance packet for dosages and recommended levels. DVT/VTE prophylaxis: You will be given compression stockings from the hospital. Wear these daily for the first two weeks after surgery. You may take them off at night. You may be prescribed a medication to help thin your blood. Take this as directed. If you are not prescribed this medication, early and frequent ambulation has been shown to be the best prophylaxis to deep vein thrombosis and sequelae related to this event. Discharge Disposition: TRANSFER TO SNF/ECF
--- NOTE | 2023-09-11 14:43 | P.PN ---
Subjective Progress Note Date: 09/11/23 Principal diagnosis: 1. 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 C4-5 spondylosis 3. UE radiculopathy with weakness 4. Neck pain Patient was seen at bedside this morning sitting up in the edge of bed with family/friend present during encounter. Soft cervical collar is in place over anterior cervical spine. Dressing is in place over cervical spine. Patient says she did have a difficult time getting up and working with therapy this morning. Patient says she does live alone at apartment and has 12 steps into her apartment. Patient says she does not think she'll be able to go home and manage on her own at home. Patient mentions she was having a little better numbness tingling down both lower extremities this morning when she got up with therapy. Patient says she has urinated several times since surgery yesterday. Patient says she has been passing gas since surgery, but has not had bowel movement yet. Patient complains mostly of neck pain directly over incision. Patient denies any radiation of pain. Patient says she did talk to disease case manager this morning and is hoping to go to rehab upon discharge. Patient denies any other issues at this time. Patient denies chest pain, fever, vomiting, change in vision, loss of bowel/bladder control. Objective - Vital Signs Vital signs: Vital Signs Temp 97.7 F 09/11/23 07:13 Pulse 72 09/11/23 07:13 Resp 17 09/11/23 07:13 BP 108/67 09/11/23 07:13 Pulse Ox 97 09/11/23 07:13 FiO2 Intake & Output 09/10/23 09/11/23 09/11/23 18:59 06:59 18:59 Intake Total 1550 Output Total 25 Balance 1525 Weight 71.2 kg 71.2 kg Intake: IV 1550 Output: Estimated Blood Loss 25 Other: # Voids 1 - Exam Inspection: Incision appears be clean, dry, intact. Dressing is in place over anterior cervical spine. Soft cervical collar in place. Sensation: Equal, symmetric, by intact at the upper and lower extremities Palpation: Moderate tenderness to palpation near incision on anterior cervical spine.. Nontender to palpation throughout rest of exam. Range of motion: Limited range of motion bilateral upper extremities and shoulder for elevation, abduction, external/internal rotation secondary to referred pain to neck and weakness. Full range of motion throughout bilateral upper extremity smell flexion/extension and wrist flexion/extension. Motor: 4/5 in all major motor groups in left upper extremity. 4/5 in all major motor groups and right upper extremity. 5/5 in all major motor groups in bilateral lower extremities Neurovascular: Radial pulses intact, 2+ bilaterally. Cap refill under 3 seconds in digits the upper extremities. Special tests: Negative Homans bilaterally. Negative clonus bilaterally. - Labs CBC & Chem 7: 09/11/23 07:23 09/11/23 07:23 Assessment and Plan Assessment: 1. C4-5 HNP with severe stenosis; C4-5 spondylosis; UE radiculopathy with weakness; Neck pain Postoperative day #1 status post - C4-5 TDR converted to ACDF Plan: 1. C4-5 HNP with severe stenosis; C4-5 spondylosis; UE radiculopathy with weakness; Neck pain surgery performed yesterday, , 09/10/2023C4-5 TDR converted to ACDF. Patient stable at bedside this morning with dressing and soft cervical collar in place over neck. At this time we are planning for patient to be discharged to rehab. manager enrollment working on this currently. Pain medication as needed. Patient may weight-bear as tolerated. Soft cervical collar on at all times. We'll continue to follow patient during her stay in hospital. Plan for discharge to rehab once auth approved, hopefully today. 2. Appreciate medical management 3. Pain management - [place]; Lyrica; Flexeril 4. DVT prophylaxis - mechanical 5. GI prophylaxis - senna 6. PT/OT - weightbearing as tolerated with walker if necessary. Soft cervical collar on at all times 7. Encourage incentive spirometer use 8. Discharge planning - Plan for discharge to rehab once auth approved, hopefully today. Time with Patient: Less than 30
[2023-09-11] MEDS: ATORVASTATIN 40 MG TAB PO SCH (21:03)
[2023-09-11] MEDS: ESCITALOPRAM 10 MG TAB PO SCH (21:38)
[2023-09-12] MEDS: ACETAMINOPHEN TAB 325 MG TAB PO SCH ×4 (06:34→22:53)
[2023-09-12] MEDS: HYDROcodone/APAP 10-325MG 1 EACH TAB PO PRN ×2 (06:34→18:10)
[2023-09-12] MEDS: LACTATED RINGERS 1,000 ML IV SCH (06:58)
[2023-09-12] MEDS: FAMOTIDINE 20 MG TAB PO SCH (08:49)
--- NOTE | 2023-09-12 09:51 | P.PN ---
Subjective Progress Note Date: 09/12/23 Principal diagnosis: 1. 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 C4-5 spondylosis 3. UE radiculopathy with weakness 4. Neck pain Patient was seen at bedside this morning sitting up at the edge of bed eating breakfast. Dressing is present over anterior cervical spine and soft cervical collar is in place. Patient says she is having some difficulty swallowing. Patient says her daughter did stop by last night and discussed the possibility patient going to live with her daughter, but at this time patient would like to move forward with rehab. Patient denies any other issues at this time. Patient says pain is a little bit better than it was yesterday. Patient denies chest pain, fever, shortness of breath, nausea, vomiting, change in vision, loss of bowel/bladder control Objective - Vital Signs Vital signs: Vital Signs Temp 97.8 F 09/12/23 07:37 Pulse 72 09/12/23 07:37 Resp 17 09/12/23 07:37 BP 102/64 09/12/23 07:37 Pulse Ox 93 L 09/12/23 07:37 FiO2 Intake & Output 09/11/23 09/12/23 09/12/23 18:59 06:59 18:59 Other: # Voids 3 1 - Exam Inspection: Incision appears be clean, dry, intact. Dressing is in place over anterior cervical spine. Soft cervical collar in place. Sensation: Equal, symmetric, by intact at the upper and lower extremities Palpation: Moderate tenderness to palpation near incision on anterior cervical spine.. Nontender to palpation throughout rest of exam. Range of motion: Limited range of motion bilateral upper extremities and shoulder for elevation, abduction, external/internal rotation secondary to referred pain to neck and weakness. Full range of motion throughout bilateral upper extremity smell flexion/extension and wrist flexion/extension. Motor: 4/5 in all major motor groups in left upper extremity. 4/5 in all major motor groups and right upper extremity. 5/5 in all major motor groups in bilateral lower extremities Neurovascular: Radial pulses intact, 2+ bilaterally. Cap refill under 3 seconds in digits the upper extremities. Special tests: Negative Homans bilaterally. Negative clonus bilaterally. - Labs CBC & Chem 7: 09/11/23 07:23 09/11/23 07:23 Labs: Abnormal Lab Results - Last 24 Hours (Table) 09/11/23 09/11/23 Range/Units 07:23 07:23 Neutrophils # 7.79 H (1.80-7.70) X 10*3/uL Calcium 8.6 L (8.7-10.3) mg/dL Assessment and Plan Assessment: 1. C4-5 HNP with severe stenosis; C4-5 spondylosis; UE radiculopathy with weakness; Neck pain Postoperative day #2 status post - C4-5 TDR converted to ACDF Plan: 1. C4-5 HNP with severe stenosis; C4-5 spondylosis; UE radiculopathy with weakness; Neck pain surgery performed , 09/10/2023C4-5 TDR converted to ACDF. Patient stable at bedside this morning with dressing and soft cervical collar in place over neck. At this time we are planning for patient to be discharged to rehab. Pain medication as needed. Patient may weight-bear as tolerated. Soft cervical collar on at all times. We'll continue to follow patient during her stay in hospital. Plan for discharge to rehab once auth approved, likely Thursday 2. Appreciate medical management 3. Pain management - [place]; Lyrica; Flexeril 4. DVT prophylaxis - mechanical 5. GI prophylaxis - senna 6. PT/OT - weightbearing as tolerated with walker if necessary. Soft cervical collar on at all times 7. Encourage incentive spirometer use 8. Discharge planning - Plan for discharge to rehab once auth approved, likely Thursday Time with Patient: Less than 30
--- NOTE | 2023-09-12 10:46 | P.PN ---
Subjective Progress Note Date: 09/12/23 No new complaints. Gen: awake, alert HEENT: normocephalic, atraumatic, good hearing acuity, moist mucous membranes Resp: good air exchange, breathing comfortably with no accessory muscle use CVS: good distal perfusion x 4, GI: soft, NTTP, ND : no SPT, no CVAT, escoto catheter not present MSK: no pitting edema, no clubbing Neuro: non-focal, moving all extremities Psych: cooperative, euthymic mood Assessment/plan: h/o CAD resume aspirin when cleared by orthopedic resume statin no chest pain at this time Nausea and vomiting -Continue Zofran 4 mg every 6 hours when necessary cervical spine surgery POD zero pain control per orthopedic team stable from medical stand point at this time check CBC , BPM in am thank you for this consultation Objective - Vital Signs Vital signs: Vital Signs Temp 97.8 F 09/12/23 07:37 Pulse 72 09/12/23 07:37 Resp 17 09/12/23 07:37 BP 102/64 09/12/23 07:37 Pulse Ox 93 L 09/12/23 07:37 FiO2 Intake & Output 09/11/23 09/12/23 09/12/23 18:59 06:59 18:59 Other: # Voids 3 1 - Labs CBC & Chem 7: 09/11/23 07:23 09/11/23 07:23 Labs: Abnormal Lab Results - Last 24 Hours (Table) 09/11/23 09/11/23 Range/Units 07:23 07:23 Neutrophils # 7.79 H (1.80-7.70) X 10*3/uL Calcium 8.6 L (8.7-10.3) mg/dL
[2023-09-12] MEDS: ESCITALOPRAM 10 MG TAB PO SCH (21:16)
[2023-09-12] MEDS: ATORVASTATIN 40 MG TAB PO SCH (21:16)
[2023-09-13] MEDS: ACETAMINOPHEN TAB 325 MG TAB PO SCH ×4 (05:19→23:59)
[2023-09-13] MEDS: LACTATED RINGERS 1,000 ML IV SCH (05:53)
[2023-09-13] MEDS: FAMOTIDINE 20 MG TAB PO SCH (07:39)
--- NOTE | 2023-09-13 08:07 | P.PN ---
Subjective Progress Note Date: 09/13/23 Principal diagnosis: 1. 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 C4-5 spondylosis 3. UE radiculopathy with weakness 4. Neck pain Patient seen at bedside this morning getting up to use the bathroom. Patient says she feels like she is progressing daily and is looking forward to work with therapy later today and tomorrow with the possibility of going home and set a rehab. Patient says she is still having some difficulty swallowing, however, patient notes that the difficulty swallowing is easing. Patient denies any other issues at this time. Objective - Vital Signs Vital signs: Vital Signs Temp 97.7 F 09/13/23 07:06 Pulse 70 09/13/23 07:06 Resp 16 09/13/23 07:06 BP 106/61 09/13/23 07:06 Pulse Ox 96 09/13/23 07:06 FiO2 Intake & Output 09/12/23 09/13/23 09/13/23 19:59 06:59 18:59 Other: # Voids - Exam Inspection: Incision appears be clean, dry, intact. Dressing is in place over anterior cervical spine. Soft cervical collar in place. Sensation: Equal, symmetric, by intact at the upper and lower extremities Palpation: Moderate tenderness to palpation near incision on anterior cervical spine.. Nontender to palpation throughout rest of exam. Range of motion: Limited range of motion bilateral upper extremities and shoulder for elevation, abduction, external/internal rotation secondary to referred pain to neck and weakness. Full range of motion throughout bilateral upper extremity smell flexion/extension and wrist flexion/extension. Motor: 4/5 in all major motor groups in left upper extremity. 4/5 in all major motor groups and right upper extremity. 5/5 in all major motor groups in bilateral lower extremities Neurovascular: Radial pulses intact, 2+ bilaterally. Cap refill under 3 seconds in digits the upper extremities. Special tests: Negative Homans bilaterally. Negative clonus bilaterally. - Labs CBC & Chem 7: 09/11/23 07:23 09/11/23 07:23 Assessment and Plan Assessment: 1. C4-5 HNP with severe stenosis; C4-5 spondylosis; UE radiculopathy with weakness; Neck pain Postoperative day #3 status post - C4-5 TDR converted to ACDF Plan: 1. C4-5 HNP with severe stenosis; C4-5 spondylosis; UE radiculopathy with [place]; Neck pain surgery performed , 09/10/2023C4-5 TDR converted to ACDF. Patient stable at bedside this morning with dressing and soft cervical collar in place over neck. At this time we are planning for patient to be discharged to rehab. Pain medication as needed. Patient may weight-bear as tolerated. Soft cervical collar on at all times. We'll continue to follow patient during her stay in hospital. Plan for discharge to rehab once auth approved, likely Thursday vs possible discharge home tmrw 2. Appreciate medical management 3. Pain management - [place]; Lyrica; Flexeril 4. DVT prophylaxis - mechanical 5. GI prophylaxis - senna 6. PT/OT - weightbearing as tolerated with walker if necessary. Soft cervical collar on at all times 7. Encourage incentive spirometer use 8. Discharge planning - Plan for discharge to rehab once auth approved, likely Thursday vs possible discharge home tmrw Time with Patient: Less than 30
[2023-09-13] MEDS ORDERED: bisacodyL 10 MG SUPP RECTAL PRN (08:37)
--- NOTE | 2023-09-13 09:07 | P.PN ---
Subjective Progress Note Date: 09/13/23 No new complaints. Has not had BM since surgery. Gen: awake, alert HEENT: normocephalic, atraumatic, good hearing acuity, moist mucous membranes Resp: good air exchange, breathing comfortably with no accessory muscle use CVS: good distal perfusion x 4, GI: soft, NTTP, ND : no SPT, no CVAT, escoto catheter not present MSK: no pitting edema, no clubbing Neuro: non-focal, moving all extremities Psych: cooperative, euthymic mood Assessment/plan: h/o CAD resume aspirin when cleared by orthopedic resume statin no chest pain at this time Nausea and vomiting Constipation -Continue Zofran 4 mg every 6 hours when necessary -add senokot-S BID, miralax 17gm daily, and bisacodyl suppos PRN cervical spine surgery POD zero pain control per orthopedic team stable from medical stand point at this time thank you for this consultation Objective - Vital Signs Vital signs: Vital Signs Temp 97.7 F 09/13/23 07:06 Pulse 70 09/13/23 07:06 Resp 16 09/13/23 07:06 BP 106/61 09/13/23 07:06 Pulse Ox 96 09/13/23 07:06 FiO2 Intake & Output 09/12/23 09/13/23 09/13/23 19:59 06:59 18:59 Other: # Voids - Labs CBC & Chem 7: 09/11/23 07:23 09/11/23 07:23
[2023-09-13] MEDS: polyethylene glycoL 3350 17 GM POWD.PACK PO SCH (12:08)
[2023-09-13] MEDS: SENNOSIDES-DOCUSATE SODIUM 1 EACH TAB PO SCH (12:08)
[2023-09-13] MEDS: ESCITALOPRAM 10 MG TAB PO SCH (20:28)
[2023-09-13] MEDS: ATORVASTATIN 40 MG TAB PO SCH (20:29)
[2023-09-14] MEDS: ACETAMINOPHEN TAB 325 MG TAB PO SCH ×2 (05:35→12:07)
[2023-09-14] MEDS: LACTATED RINGERS 1,000 ML IV SCH (06:27)
[2023-09-14 07:49] VITALS: BP 103/62; PULSE 61; RESP 17; TEMP 98.5
[2023-09-14] MEDS: SENNOSIDES-DOCUSATE SODIUM 1 EACH TAB PO SCH (07:53)
[2023-09-14] MEDS: polyethylene glycoL 3350 17 GM POWD.PACK PO SCH (07:53)
[2023-09-14] MEDS: FAMOTIDINE 20 MG TAB PO SCH (07:54)
--- NOTE | 2023-09-14 08:19 | P.PN ---
Subjective Progress Note Date: 09/14/23 Principal diagnosis: 1. 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 C4-5 spondylosis 3. UE radiculopathy with weakness 4. Neck pain Patient seen and examined this morning. Patient is sitting up and resting in bed. She reports that her pain is managed on current regimen. Surgical dressing to the anterior cervical spine is clean dry and intact. Soft cervical collar is in place. Patient is looking forward to working with physical therapy today to determine if she is comfortable with going home with home care versus [facility]. Patient reports significant improvement since the time of her procedure, she reports upper extremity radiculopathy has resolved. Patient has been urinating without difficulty, she reports she did have a BM last night. No acute concerns at this time. Objective - Vital Signs Vital signs: Vital Signs Temp 98.4 F 09/14/23 01:15 Pulse 71 09/14/23 01:15 Resp 18 09/14/23 01:15 BP 111/70 09/14/23 01:15 Pulse Ox 96 09/14/23 01:15 FiO2 Intake & Output 09/13/23 09/14/23 09/14/23 18:59 06:59 18:59 Other: # Voids 3 0 - Exam Physical Examination General: The patient is awake and alert, in no acute distress Skin: Skin is warm and dry with no obvious rashes or lesions. Surgical incision to the right anterior cervical spine. Soft cervical collar is intact. Eye: Pupils are equal, round and reactive to light, extra-ocular movements are intact; there is normal conjunctiva bilaterally. Neck: The neck is supple, there is mild tenderness and limited range of motion due to surgical procedure. Cardiovascular: There is a regular rate and rhythm. No murmur, rub or gallop is appreciated. Respiratory: Lungs are clear to auscultation, respirations are non-labored, breath sounds are equal. Gastrointestinal: Soft, non-distended, non-tender abdomen. Back: There is no tenderness to palpation in the midline, paralumbar, parathoracic or buttocks region. There is no obvious deformity . Musculoskeletal: ROM limited secondary to pain and stiffness from surgical procedure. Muscle strength in all major muscle groups of bilateral upper extremities 4+/5, bilateral lower extremities 5/5. Neurological: CN 2-12 intact. There are no obvious motor or sensory deficits. Movement and coordination equal and intact. Sensory exam to light touch intact C5-T1 and intact from L2-S1. Reflexes 2/4 in bilateral upper and lower extremities. Negative Hoffmans, babinski, and clonus signs. Psychiatric: Cooperative, appropriate mood & affect, normal judgment. - Labs CBC & Chem 7: 09/11/23 07:23 11 07:23 Assessment and Plan Assessment: Postop Day 4: C4-5 TDR converted to ACDF 1. 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 C4-5 spondylosis 3. UE radiculopathy with weakness 4. Neck pain Plan: -Appreciate senior sustainability consultant and team management. -Activity: Ambulate QID, OOB all meals, up and about, limit lifting bending twisting to less than 5 lbs. Use walker or cane if needed for stability. -Daily PT/OT, increase ambulation strength and balance. -Soft cervical collar when up and about, not needed in bed or chair -Pain control: Adequate at this time -Meds: reviewed -GI ppx: senna, Miralax -DVT PPX: heparin -Hygiene: Shower today. Maintain dressing clean and dry. -Encourage IS 10x/hr -Dispo: Anticipate discharge home later today with homecare vs [facility]. *I reviewed and discussed this case with my attending Dr. Cleveland, whom has reviewed this chart and films and is in agreement with assessment and plan of care as outlined above. I have personally seen and examined the patient, performed the documentation and the assessment and plan as written. Number of minutes spent on the visit: 20m.
--- NOTE | 2023-09-14 10:50 | P.PN ---
Subjective Progress Note Date: 09/14/23 No new complaints. Still has not had BM since surgery. Gen: awake, alert HEENT: normocephalic, atraumatic, good hearing acuity, moist mucous membranes Resp: good air exchange, breathing comfortably with no accessory muscle use CVS: good distal perfusion x 4, GI: soft, NTTP, ND : no SPT, no CVAT, escoto catheter not present MSK: no pitting edema, no clubbing Neuro: non-focal, moving all extremities Psych: cooperative, euthymic mood Assessment/plan: h/o CAD resume aspirin when cleared by orthopedic resume statin no chest pain at this time Nausea and vomiting Constipation -Continue Zofran 4 mg every 6 hours when necessary -continue senokot-S BID, miralax 17gm daily, and bisacodyl suppos PRN cervical spine surgery POD zero pain control per orthopedic team stable from medical stand point at this time thank you for this consultation Objective - Vital Signs Vital signs: Vital Signs Temp 98.5 F 09/14/23 07:10 Pulse 61 09/14/23 07:10 Resp 17 09/14/23 08:00 BP 103/62 09/14/23 07:10 Pulse Ox 97 09/14/23 08:21 FiO2 Intake & Output 09/13/23 09/14/23 09/14/23 18:59 06:59 18:59 Other: # Voids 3 0 - Labs CBC & Chem 7: 09/11/23 07:23 09/11/23 07:23
--- NOTE | 2023-09-14 12:05 | P.DS ---
Providers Date of admission: 09/10/23 Expected date of discharge: 09/14/23 Attending physician: Evan Cleveland DO Consults: 09/10/23 15:35 Consult Physician Routine Consulting Provider: Natalie Buckley Reason/Comments: medical management s/p s/p C4-C5 ACDF Do you want consulting provider notified?: Yes Primary care physician: Broderick Cardenas MD Hospital Course: Hospital Course: The patient was evaluated preoperatively and found to have the diagnosis of cervical spondylosis, bilateral upper extremity radiculopathy and weakness. They underwent appropriate preoperative care and were willing to undergo the intended procedure. They underwent a successful C4-C5 ACDF, were recovered appropriately and sent to the floor. While on the floor they worked with physical therapy, occupational therapy and nursing to enhance their recovery experience. Their pain was well controlled through their stay and they were started on appropriate medications, DVT ppx modalities, activity and dietary needs. Daily labs were monitored closely, and transfusions were only used when necessary. Medicine as well as other consulting services have made their input and have helped with our team approach and multidisciplinary care. PT milestones have been met and passed and they have made the recommendation of home with home care for this patient and treating providers agree with this care path. The patient will be discharged home with appropriate medications, instructions and follow-up information and in stable condition. Assessment: 1. 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 C4-5 spondylosis 3. UE radiculopathy with weakness 4. Neck pain Patient Condition at Discharge: Stable Plan - Discharge Summary Discharge Rx Participant: Yes New Discharge Prescriptions: New Pregabalin [Lyrica] 100 mg PO TID #21 cap Sennosides/Docusate Sodium [Senna Plus 8.6-50 mg Softgel] 1 each PO DAILY #20 capsule HYDROcodone/APAP 10-325MG [[place] 10-325] 1 tab PO Q6HR PRN #28 tab PRN Reason: Pain cefaDROXiL [Duricef] 500 mg PO Q12HR 5 Days #10 cap Cyclobenzaprine [Flexeril] 5 mg PO TID #21 tablet Acetaminophen Tab [Tylenol] 650 mg PO Q6HR tab Continue Atorvastatin [Lipitor] 40 mg PO HS Escitalopram [Lexapro] 10 mg PO HS Potassium Gluconate 99 mg PO DAILY Famotidine [Pepcid] 20 mg PO QAM Calcium Carbonate [Calcium] 600 mg PO BID Aspirin [Adult Low Dose Aspirin EC] 81 mg PO DAILY #30 tab Discontinued Celecoxib [CeleBREX] 200 mg PO DAILY PRN PRN Reason: Pain Discharge Medication List Atorvastatin [Lipitor] 40 mg PO HS 03/07/21 [History] Aspirin [Adult Low Dose Aspirin EC] 81 mg PO DAILY #30 tab 07/24/23 [Rx] Calcium Carbonate [Calcium] 600 mg PO BID 07/24/23 [History] Escitalopram [Lexapro] 10 mg PO HS 07/24/23 [History] Potassium Gluconate 99 mg PO DAILY 07/24/23 [History] Famotidine [Pepcid] 20 mg PO QAM 09/07/23 [History] Acetaminophen Tab [Tylenol] 650 mg PO Q6HR tab 09/11/23 [Rx] Cyclobenzaprine [Flexeril] 5 mg PO TID #21 tablet 09/11/23 [Rx] HYDROcodone/APAP 10-325MG [[place] 10-325] 1 tab PO Q6HR PRN #28 tab 09/11/23 [Rx] Pregabalin [Lyrica] 100 mg PO TID #21 cap 09/11/23 [Rx] Sennosides/Docusate Sodium [Senna Plus 8.6-50 mg Softgel] 1 each PO DAILY #20 capsule 09/11/23 [Rx] cefaDROXiL [Duricef] 500 mg PO Q12HR 5 Days #10 cap 09/11/23 [Rx] Follow up Appointment(s)/Referral(s): Evan Cleveland DO [Doctor of Osteopathic Medicine] - 09/24/23 10:00 am Activity/Diet/Wound Care/Special Instructions: Spine Discharge and Recovery Instructions Maintain dressing clean, dry, intact. Dressing may be removed beginning 09/15/2023. Okay to shower directly over incision once dressing is removed. Date of Surgery: 09/10/2023 Diagnosis: C4 to C5 disc herniation Procedure: C4 to C5 ACDF Medications: See medication list All medication refills should be obtained through your primary care doctor or your clinic spine surgeon. Please discuss prescription refills at your follow up appointment. Do not call the hospital for medication refills. Dressing: Leave your dressing in place for a total of 5 days post operatively. Then you may remove your dressing and leave open to air. Keep the area clean and if not able to keep area clean, then cover with sterile gauze and tape. Showering: You may shower 3 days after your procedure allowing soap and water to run over incision. Do not scrub. Do not soak. Blot dry. Follow up: Please confirm a follow up appointment with your surgeon 3 weeks post oper atively. Please make an appointment to follow up with your PCP in 1-2 weeks after surgery for evaluation 3 phase, 3-week plan POST OP WEEKS 1-3 1. Lifting/carrying/pushing/pulling limited to less than 5 pounds. 2. Do not sit for longer than 15 minutes at one time. Get up and walk around. Prolonged sitting is NOT advised. If you lay down, see if you can tolerate laying down on you front (belly side) 3. Walk for periods of 15 minutes = 1 mile but no longer; do it multiple times times each day. 4. Ice your low back after activity. POST OP WEEKS 3-6 1. Lifting limited to less than 20 pounds. 2. Do not sit for longer than 30 minutes at a time. Frequently change positions. Use a sit-to stand workstation or take frequent breaks from sitting if you have returned to work. 3. Walk for 30 minutes each day. If possible, do these three or more times a day POST OP WEEKS 6+ At your 6-week appointment we will give you a physical therapy referral to focus on a core stabilization and strengthening program. You should also work on leg & buttock strengthening, hamstring & quadriceps stretching, and continue a low impact aerobic activity program such as swimming, walking, or riding a stationary bicycle. During the initial 6 weeks after your surgery, you are at the highest risk of re-injuring your spine. You should generally avoid BLTs (bending, lifting and twisting combination motions) and follow the above guidelines to reduce the chance of reinjury. You can anticipate post op appointments in our office at approximately 3 weeks and 6 weeks after your surgery. INCISION CARE: If your incision is not draining you do NOT need to cover it with a dressing. Keep your incision clean, dry and intact. In most cases, we apply skin glue, carlito or sutures to the incision at the time of surgery. This will be like a crust or have the appearance of a scab and will fall off in time on its own. The stitches or carlito need to be removed at 3 weeks post op appointment. You may begin to shower 3 days after surgery (this allows the glue to casillas well). However, please avoid scrubbing the incision site or peeling off any of the skin glue. This will ensure optimal healing of your incision. Also, during this time avoid soaking the incision area in water - this includes swimming pools, hot tubs or baths. No ointments, lotions or oils on the incision until your surgeon allows. Leave carlito, sutures or glue in place. Neurological dysfunction that comes on suddenly can also be a sign of a stroke. Below some common symptoms of a stroke are listed: B - balance difficulty such as sudden onset walking or leaning to one side - NEW E - eye problem such as sudden double vision or trouble seeing on one side - NEW F - Facial weakness or numbness on one side - NEW A - Arm or leg weakness or numbness on one side - NEW S - Slurred speech or difficulty with word finding - NEW T - Time is BRAIN! Call 911 as soon as you recognize these symptoms Diet: Consume a regular diet rich in vegetables and lean protein such as chicken or fish. You should consume in a ratio of approximately 20% fats|40% carbohydrates|40%protein. Vegetables, sweet potatoes, brown rice or quinoa are examples of good carbohydrates. Chips, white bread, cookies and sweets/sugar are examples of bad carbohydrates. Limit your bad carbs, go wild with good carbs. "Life's Simple 7" Guidelines as per [place] [employer] These will help you reclaim your life after surgery and rubber calender helper in your recovery, keeping in mind your restrictions. (1) Get Active. Physical activity can help people lose weight, control high blood pressure and cholesterol, feel emotionally better, and sleep better. (2) Control Cholesterol. Avoid a diet high in saturated fat, trans fat, & cholesterol. Limit whole milk & cream, ice cream, butter, egg yolks, processed meats (like sausage and hot dogs), and fatty meats. Choose healthy foods that are low in saturated fat, trans fat and cholesterol which include: Fruits and vegetables, fiber rich grain products (like whole grain pasta and brown rice), lean meat such as chicken, fish, nuts, seeds, and legumes. (3) Eat Better. Eat small portions. Shop at the grocery with a list and do not stray from it. Tips for a healthy diet include: Limit sodium intake to less than 1500mg daily, avoid prepackaged, processed, and fast foods, choose a diet rich in fruits, vegetables, and whole grain, high fiber foods, and limit saturated & cholesterol in your diet. (4) Manage Blood Pressure. If you have high blood pressure, you should have a cuff at home so that you can check your blood pressure regularly. Be sure you have a good cuff. An arm one is generally better than a wrist one. Bring the cuff to a doctor's appointment to validate that the measurements that your cuff are taking are accurate. Take your blood pressure twice daily when you are sitting down and relaxing. Record the numbers in a log and bring this log with you to your doctors' appointments. (5) Lose Weight if your BMI is above 25. A healthy BMI is between 19-25. To calculate Your BMI, you may use a Standard BMI Calculator on the NIH BMI website: <www.nhlbi.nih.gov/guidelines/obesity/BMI/bmicalc.htm>. Weigh oneself daily. If you are overweight, set a goal to lose weight. A pound a week loss if needed is a good target. (6) Reduce Blood Sugar. Limit foods and liquids with "added sugars." (Added sugars include sucrose, fructose, glucose, maltose, dextrose, high fructose corn syrup, corn syrup, concentrated fruit juice and honey). (7) Stop Smoking. If you smoke, quitting smoking is one of the best things that you can do for your health. Smoking increases your risk of heart attack, stroke, and peripheral vascular disease, which is a build-up of plaque in your arteries. Please discard all the cigarettes and lighters in your house. Have a plan for what you will do when you have the urge to smoke. Direct and second- hand smoke shortens your life as well as the lives of your family, friends and others around you. For your health and the health of those around you, please consider quitting! Proper Bending Body Mechanics: Maintain a wide stance with one foot slightly in front of the other. Keep your back straight. Bend utilizing the strength in your hips and knees. Do not bend at the waist. Maintain the lifted object at your waist-level close to your body. Avoid lifting weight that causes immediately pain or pain anywhere in the body afterwards. Smoking/Nicotine If there was ever one thing that you could do to increase your overall health, decrease your risk of cardiovascular problems by about 39% the second you make the choice, it is to STOP SMOKING. Your body's most instant gratification is the second you stop smoking. We have all heard the studies, read the articles but it is true, smoking is extremely bad for your overall health, and moreover it is detrimental to your bone health. Nicotine, IN ANY FORM, kills bone cells, prevents your body from healing fractures, and significantly prolongs healing after surgery. In spine surgery specifically, it increases your risk of not healing your bones to create a fusion and increases your risk of having a revision surgery due to this up to 60%. I know it is hard. I know it feels impossible. But there are ways. Take control of your life. We are here to help you through it. And when you are ready, ask us and we can direct you to help if you desire. Use the START Plan to Quit Smoking (please visit the Helpguide.org website listed below for more information): S = Set a quit date. Choose a date within the next 2 weeks, so you have enough time to prepare without losing your motivation to quit. If you mainly smoke at work, quit on the weekend, so you have a few days to adjust to the change. T = Tell family, friends, and co-workers that you plan to quit. Let your friends and family in on your plan to quit smoking and tell them you need their support and encouragement to stop. Look for a quit zoraida who wants to stop smoking as well. You can help each other get through the rough times. A = Anticipate and plan for the challenges you'll face while quitting. Most people who begin smoking again do so within the first 3 months. You can help yourself make it through by preparing ahead for common challenges, such as nicotine withdrawal and cigarette cravings. R = Remove cigarettes and other tobacco products from your home, car, and work. Throw away all your cigarettes (no emergency pack!), lighters, ashtrays, and matches. Wash your clothes and freshen up anything that smells like smoke. Shampoo your car, clean your drapes and carpet, and steam your furniture. T = Talk to your doctor about getting help to quit. Your doctor can prescribe medication to help with withdrawal and suggest other alternatives. If you can't see a doctor, you can get many products over the counter at your local pharmacy or grocery store, including the nicotine patch, nicotine lozenges, and nicotine gum. Resources for Quitting Smoking: <https://www.[place].gov/doc uments/[facility]/Quit_Tobacco_Resources_for_patients_313480_7.pdf> Supplementation: Take recommended dosages of Vitamin D and Calcium to help fortify your bones and help them to heal. See your health maintenance packet for dosages and recommended levels. DVT/VTE prophylaxis: You will be given compression stockings from the hospital. Wear these daily for the first two weeks after surgery. You may take them off at night. You may be prescribed a medication to help thin your blood. Take this as directed. If you are not prescribed this medication, early and frequent ambulation has been shown to be the best prophylaxis to deep vein thrombosis and sequelae related to this event. Discharge Disposition: HOME WITH HOME HEALTH SERVICES
== END 2023-09-14 15:48 | disposition home health service (06) ==
LOC: OR 11:14 → 4SSUR 16:19 → OR 09-14 15:48
PROVIDERS: ATTEND Orthopaedic Surgery
DX: M50.121 Cervical disc disorder at C4-C5 level with radiculopathy (principal); M47.22 Other spondylosis with radiculopathy, cervical region; M48.02 Spinal stenosis, cervical region; I10 Essential (primary) hypertension; E78.5 Hyperlipidemia, unspecified; F32.A Depression, unspecified; F41.9 Anxiety disorder, unspecified; I25.2 Old myocardial infarction; Z79.82 Long term (current) use of aspirin; Z79.899 Other long term (current) drug therapy; Z82.3 Family history of stroke; Z85.048 Personal history of other malignant neoplasm of rectum, rectosigmoid junction, and anus; Z98.891 History of uterine scar from previous surgery; Z87.891 Personal history of nicotine dependence
CPT/HCPCS: 94760; 97530; 97161; 97535; 97165; 88305; 80048; 85025; 72040; 72125; 22551; 22845; 22853; C1713; J0690 ×2; J2405 ×2; J1170